=== PATIENT | male | born 1945 | race Caucasian/White ===

== ENCOUNTER → 2019-10-25 10:21 | Outpatient (CLI) | payer OTHER, SELFPAY ==
[2019-10-25 11:00] LABS: Appearance Urine UA SL CLOUDY; Bilirubin Urine UA NEGATIVE (NEGATIVE); Color Urine UA YELLOW; Glucose Urine UA TRACE g/dL (Negative); Ketones Urine UA NEGATIVE (NEGATIVE); Leukocyte Esterase Urine UA 1+ (NEGATIVE); Nitrite Urine UA NEGATIVE (Negative); Occult Blood Urine UA 3+ (Negative); Protein Urine UA 1+ (Negative); Specific Gravity Urine UA 1.025 (1.000-1.035); Urobilinogen Urine UA 0.2 E.U./dL (0.2)
[2019-10-25 11:15] LABS: Bacteria Urine Moderate (10-30); RBC Urine 10-30/HPF (0-5/HPF); Squamous Epithelial Cell Urine 0-1 /HPF (0-5/HPF); WBC Urine >100/HPF (0-5/HPF)
== END ==
PROVIDERS: Referring Provider Internal Medicine; Visit Provider Internal Medicine
DX: R32 Unspecified urinary incontinence (principal)
CPT/HCPCS: 81001; 87086

== ENCOUNTER 2020-05-13 19:11 | Emergency (ER) | payer OTHER, SELFPAY ==
[2020-05-13 19:26] VITALS: BP 147/90; PULSE 96; RESP 20; TEMP 36.6; O2SAT 96
[2020-05-13] MEDS: OXYCODONE/ACETAMINOPHEN 5/325 TABLET 1 TAB PO ×2 (20:04→23:50)
[2020-05-13 20:12] LABS: Prothrombin Time 11.7 SECONDS (10.1-12.7)
[2020-05-13 20:13] LABS: Basophils Absolute Auto 0 /uL (0-100); Basophils Percent Auto 0.1 % (0-2); Eosinophils Absolute Auto 0 /uL (0-450); Hematocrit 39.8 % (41-53); Hemoglobin 12.9 g/dL (13.5-17.5); Lymphocytes Absolute Auto 200 /uL (1100-4500); Lymphocytes Percent Auto 2.4 % (25-40); Mean Corpuscular HGB Conc 32.3 % (30-36); Mean Corpuscular Volume 95.9 fL (80-100); Monocytes Absolute Auto 100 /uL (0-900); Monocytes Percent Auto 1.5 % (3-14); Neutrophils Absolute Auto 9200 /uL (1500-7000); Platelet Count 120 X10^3/uL (150-400); Red Blood Cell Count 4.16 X10^6/uL (4.5-5.9); Red Cell Distribution Width 13.6 % (11.6-14.8); White Blood Cell Count 9.6 X10^3/uL (4.5-11.0)
[2020-05-13 20:15] LABS: PTT Partial Thromboplastin Tim 27 SECONDS (26.4-36.2)
[2020-05-13 20:17] LABS: Alanine Aminotransferase 17 IU/L (<50); Albumin 4.2 g/dL (3.5-5.0); Albumin Globulin Ratio 1.1 (1.0-2.8); Alkaline Phosphatase 72 U/L (38-126); Aspartate Aminotransferase 25 IU/L (17-59); BUN Creatinine Ratio 18.8 (6-22); Bilirubin Total 0.5 mg/dL (0.2-1.3); Blood Urea Nitrogen 36 mg/dL (9-20); Calcium 9.1 mg/dL (8.4-10.2); Carbon Dioxide 27 mmol/L (22-32); Chloride 105 mmol/L (98-107); Estimated Glomerular Filt Rate 34.6 mL/min (>60); Globulin 3.9 g/dL (1.7-4.1); Glucose 209 mg/dL (80-110); Lipase 44 U/L (23-300); Sodium 137 mmol/L (137-145); Total Protein 8.1 g/dL (6.3-8.2)
[2020-05-13 20:18] LABS: HEMOLYSIS 74 (0-50)
[2020-05-13 20:19] LABS: Potassium 4.8 mmol/L (3.4-5.1)
[2020-05-13 20:27] LABS: Add Manual Diff / Slide Review SLIDE REVIEW
[2020-05-13 20:28] LABS: Platelet Estimate Decreased on smear
[2020-05-13] MEDS: LIDOCAINE 2% (UROJET) 5 ML GEL TOP (20:32)
[2020-05-13] MEDS: ONDANSETRON 4 MG/2 ML INJ IV (20:37)
[2020-05-13] MEDS: HYDROMORPHONE 0.5 MG INJ IV ×2 (20:37→23:51)
[2020-05-13 21:08] VITALS: PULSE 74; O2SAT 95
--- NOTE | 2020-05-13 21:18 | PC.NURSE ---
CBI initiated, urine clearing. Now batista color with little sediment. Pt resting comfortably.
[2020-05-13 21:21] VITALS: BP 147/72
[2020-05-13 21:22] LABS: Appearance Urine UA CLOUDY; Bilirubin Urine UA NEGATIVE (NEGATIVE); Color Urine UA RED; Glucose Urine UA 1+ g/dL (Negative); Ketones Urine UA NEGATIVE (NEGATIVE); Leukocyte Esterase Urine UA TRACE (NEGATIVE); Nitrite Urine UA NEGATIVE (Negative); Occult Blood Urine UA 3+ (Negative); Protein Urine UA 2+ (Negative); Urobilinogen Urine UA 0.2 E.U./dL (0.2); pH Urine UA 5.5 (4.5-8.0)
[2020-05-13 21:29] LABS: Bacteria Urine Few (2-10); RBC Urine >100/HPF (0-5/HPF); Squamous Epithelial Cell Urine 0-1 /HPF (0-5/HPF); WBC Urine 1-5/HPF (0-5/HPF)
[2020-05-13 21:30] VITALS: BP 139/68; PULSE 69; O2SAT 96
[2020-05-13 21:30] LABS: Culture Indicated Urine Specimen Cultured
[2020-05-13 22:00] VITALS: BP 137/74; PULSE 68; O2SAT 96
[2020-05-13 22:30] VITALS: BP 164/82; PULSE 67; O2SAT 97
--- NOTE | 2020-05-13 23:00 | PC.NURSE ---
Urine brandee-tinged after first bag CBI. 2nd bag hung per verbal order. Pt resting comfortable, updated to POC.
[2020-05-13] MEDS: OXYCODONE/APAP 5/325 PREPACK 1 BOTTLE MISC (23:50)
--- NOTE | 2020-05-13 23:52 | ED.GENADULT ---
HPI - General Adult General Chief complaint: Abdominal Pain Stated complaint: LOTS OF PAIN IN THE KIDNEY HAD TUMOR SURGERY TODAY Time Seen by Provider: 05/13/20 19:47 Source: patient and family Mode of arrival: Ambulatory History of Present Illness HPI narrative: 74-year-old gentleman with a history of bladder polyps was seen at [facility] in [place] with polyp removal and left ureteral stent placement. Apparently the procedure went well he was discharged home however by the time he got back to the [place] he had voided couple small clots and then has stopped voiding completely. He is having increasing pelvic and left-sided flank pain. No fevers, chest pain, palpitations, syncope or orthopnea are reported Related Data Previous Rx's Medication Instructions Recorded oxycodone-acetaminophen 1 tab PO Q6H PRN 5 Days #20 tab 05/13/20 polyethylene glycol 3350 17 g PO DAILY #238 g 05/13/20 Allergies Allergy/AdvReac Type Severity Reaction Status Date / Time No Known Drug Allergies Allergy Verified 05/13/20 19:30 Review of Systems Review of Systems ROS Unobtainable: All systems reviewed & are unremarkable except as noted in HPI and below Patient History Medical History Bladder polyps Exam Narrative Exam Narrative: General: Alert appropriate in mild distress secondary to bladder pain Respiratory: Able to speak in full sentences, no obvious respiratory distress Abdomen: Tenderness over the infraumbilical area with some mild left flank pain no rebound or guarding. Skin: No obvious rashes, warm and dry Neurologic: Grossly intact no obvious asymmetries or abnormalities Psych, appropriate insight and affect, cooperative Initial Vital Signs Initial Vital Signs: Vital Signs Temperature 97.9 F 05/13/20 19:26 Pulse Rate 96 H 05/13/20 19:26 Respiratory Rate 20 05/13/20 19:26 Blood Pressure 147/90 H 05/13/20 19:26 Pulse Oximetry 96 05/13/20 19:26 Course Orders Ordered: Discontinued Medications Hydromorphone HCl (Hydromorphone 0.5 Mg Inj) 0.5 mg IV Q15MIN PRN PRN Reason: Pain, Last Admin: 05/13/20 20:37 Dose: 0.5 mg Documented by: [facility]CO Hydromorphone HCl (Hydromorphone 0.5 Mg Inj) 0.5 mg IV NOW ONE Stop: 05/13/20 23:47 Last Admin: 05/13/20 23:51 Dose: 0.5 mg Documented by: SOFIA Lidocaine HCl (Lidocaine 2% (Urojet) 5 Ml Gel) 5 ml TOP NOW ONE Stop: 05/13/20 20:20 Last Admin: 05/13/20 20:32 Dose: 5 ml Documented by: [facility]CO Ondansetron HCl (Ondansetron 4 Mg/2 Ml Inj) 4 mg IV NOW ONE Stop: 05/13/20 20:32 Last Admin: 05/13/20 20:37 Dose: 4 mg Documented by: [facility] Oxycodone/Acetaminophen (Oxycodone/Acetaminophen 5/325 Tablet) 1 tab PO NOW ONE Stop: 05/13/20 19:54 Last Admin: 05/13/20 20:04 Dose: 1 tab Documented by: TESSA Oxycodone/Acetaminophen (Oxycodone/Apap 5/325 Prepack) 1 bottle MISC SEEINSTR ONE Stop: 05/13/20 23:48 Last Admin: 05/13/20 23:50 Dose: 1 bottle Documented by: SOFIA Oxycodone/Acetaminophen (Oxycodone/Acetaminophen 5/325 Tablet) 1 tab PO NOW ONE Stop: 05/13/20 23:48 Last Admin: 05/13/20 23:50 Dose: 1 tab Documented by: SOFIA Vital Signs Vital signs: Vital Signs - 8 hr 05/13/20 22:30 05/14/20 00:29 Temperature 97.2 F L Pulse Rate 67 67 Respiratory Rate 18 Blood Pressure 164/82 H 140/73 Pulse Oximetry 97 97 Medical Decision Making Medical Records Medical records reviewed: Yes I reviewed the patient's medical records. Lab Data Lab results reviewed: Yes I reviewed the patient's lab results. Result diagrams: 05/13/20 19:52 05/13/20 19:52 Labs: Lab Results 05/13/20 05/13/20 05/13/20 Range/Units 19:52 19:52 19:52 WBC 9.6 (4.5-11.0) X10^3/uL RBC 4.16 L (4.5-5.9) X10^6/uL Hgb 12.9 L (13.5-17.5) g/dL Hct 39.8 L (41-53) % MCV 95.9 (80-100) fL MCH 31.0 (26-34) PG MCHC 32.3 (30-36) % RDW 13.6 (11.6-14.8) % Plt Count 120 L (150-400) X10^3/uL Neut % (Auto) 96.0 H (50-75) % Lymph % (Auto) 2.4 L (25-40) % [place] % (Auto) 1.5 L (3-14) % Eos % (Auto) 0.0 L (2-4) % Baso % (Auto) 0.1 (0-2) % Neut # (Auto) 9200 H (2531-5790) /uL Lymph # (Auto) 200 L (9603-0795) /uL [place] # (Auto) 100 (0-900) /uL Eos # (Auto) 0 (0-450) /uL Baso # (Auto) 0 (0-100) /uL Platelet Estimate Decreased on smear Plt Morphology Comment 2+ giant platelets RBC Morphology Not Reportable PT 11.7 (10.1-12.7) SECONDS INR 1.0 (0.9-1.3) APTT 27 (26.4-36.2) SECONDS Sodium 137 (137-145) mmol/L Potassium 4.8 (3.4-5.1) mmol/L Chloride 105 (98-107) mmol/L Carbon Dioxide 27 (22-32) mmol/L BUN 36 H (9-20) mg/dL Creatinine 1.92 H (0.66-1.25) mg/dL Estimated GFR 34.6 L (>60) mL/min BUN/Creatinine Ratio 18.8 (6-22) Glucose 209 H (80-110) mg/dL Calcium 9.1 (8.4-10.2) mg/dL Total Bilirubin 0.5 (0.2-1.3) mg/dL AST 25 (17-59) IU/L ALT 17 (<50) IU/L Alkaline Phosphatase 72 (38-126) U/L Total Protein 8.1 (6.3-8.2) g/dL Albumin 4.2 (3.5-5.0) g/dL Globulin 3.9 (1.7-4.1) g/dL Albumin/Globulin Ratio 1.1 (1.0-2.8) Lipase 44 (23-300) U/L Urine Color Urine Appearance Urine pH (4.5-8.0) Ur Specific [place] (1.000-1.035) Urine Protein (Negative) Urine Glucose (UA) (Negative) g/dL Urine Ketones (NEGATIVE) Urine Occult Blood (Negative) Urine Nitrate (Negative) Urine Bilirubin (NEGATIVE) Urine Urobilinogen (0.2) E.U./dL Ur Leukocyte Esterase (NEGATIVE) Urine RBC (0-5/HPF) Urine WBC (0-5/HPF) Ur Squamous Epith Cells (0-5/HPF) Urine Bacteria (None) Ur Culture Indicated? 05/13/20 Range/Units 21:12 WBC (4.5-11.0) X10^3/uL RBC (4.5-5.9) X10^6/uL Hgb (13.5-17.5) g/dL Hct (41-53) % MCV (80-100) fL MCH (26-34) PG MCHC (30-36) % RDW (11.6-14.8) % Plt Count (150-400) X10^3/uL Neut % (Auto) (50-75) % Lymph % (Auto) (25-40) % [place] % (Auto) (3-14) % Eos % (Auto) (2-4) % Baso % (Auto) (0-2) % Neut # (Auto) (7657-2004) /uL Lymph # (Auto) (4779-9486) /uL [place] # (Auto) (0-900) /uL Eos # (Auto) (0-450) /uL Baso # (Auto) (0-100) /uL Platelet Estimate Plt Morphology Comment RBC Morphology PT (10.1-12.7) SECONDS INR (0.9-1.3) APTT (26.4-36.2) SECONDS Sodium (137-145) mmol/L Potassium (3.4-5.1) mmol/L Chloride (98-107) mmol/L Carbon Dioxide (22-32) mmol/L BUN (9-20) mg/dL Creatinine (0.66-1.25) mg/dL Estimated GFR (>60) mL/min BUN/Creatinine Ratio (6-22) Glucose (80-110) mg/dL Calcium (8.4-10.2) mg/dL Total Bilirubin (0.2-1.3) mg/dL AST (17-59) IU/L ALT (<50) IU/L Alkaline Phosphatase (38-126) U/L Total Protein (6.3-8.2) g/dL Albumin (3.5-5.0) g/dL Globulin (1.7-4.1) g/dL Albumin/Globulin Ratio (1.0-2.8) Lipase (23-300) U/L Urine Color Red Urine Appearance Cloudy Urine pH 5.5 (4.5-8.0) Ur Specific [place] 1.010 (1.000-1.035) Urine Protein 2+ H (Negative) Urine Glucose (UA) 1+ H (Negative) g/dL Urine Ketones Negative (NEGATIVE) Urine Occult Blood 3+ H (Negative) Urine Nitrate Negative (Negative) Urine Bilirubin Negative (NEGATIVE) Urine Urobilinogen 0.2 (0.2) E.U./dL Ur Leukocyte Esterase Trace H (NEGATIVE) Urine RBC >100/hpf H (0-5/HPF) Urine WBC 1-5/hpf (0-5/HPF) Ur Squamous Epith Cells 0-1 /hpf (0-5/HPF) Urine Bacteria Few (2-10) H (None) Ur Culture Indicated? Specimen cultured MDM Narrative Medical decision making narrative: 74-year-old gentleman with acute urinary retention after bladder polyps were removed today presumably secondary to blood clots. Three way Azar was placed with approximately 500 cc of urine returned. With 4 L of irrigation urine was returning essentially clear. Pain was significantly improved with a single dose of IV Dilaudid up Percocet and relief of the acute bladder retention. Case was reviewed with Dr. Pozo, his urologist that performed the surgery this morning. Reviewed findings. He agreed with leaving the Azar catheter in as well as pain medication as needed. His office will contact the patient to arrange for follow-up and removal of Azar catheter in a timely manner. Patient is safe for home discharge Discharge Plan Departure Patient Disposition: Home Clinical Impression: Post-op pain, Acute urinary retention Instructions: DI for Urinary Retention in Men, DI for Ureteral Stent Placement Activity Restrictions/Additional Instructions: Thank you for coming in today I am so sorry that your having so much pain after your bladder surgery and stent placement today. You had enough blood clots that you are unable to void. When we initially placed a catheter you had almost 500 cc of urine along with significant blood clots. All of this was irrigated out and by the time you left the emergency department your urine was clear. I have given you some oxycodone-acetaminophen to help with pain control. This is a narcotic and will cause constipation. Any day that you use the oxycodone-acetaminophen please also take 17 g (1 packet or 1 cap full) of MiraLax with a large glass of water. Prescriptions: New oxycodone-acetaminophen 5-325 mg tablet 1 tab PO Q6H PRN (Reason: pain) 5 Days Qty: 20 RF: 0 polyethylene glycol 3350 17 gram/dose powder 17 g PO DAILY Qty: 238 RF: 0
[2020-05-14 00:29] VITALS: BP 140/73; PULSE 67; RESP 18; TEMP 36.2; O2SAT 97
== END 2020-05-14 00:31 | disposition home or self-care (01) ==
PROVIDERS: Emergency Provider Emergency Medicine
DX: G89.18 Other acute postprocedural pain (principal); R33.8 Other retention of urine; Z96.0 Presence of urogenital implants
CPT/HCPCS: 36415; 51701; 51705; 51798; 80053; 81001; 83690; 85025; 85610; 85730; 87086; 96374; 96375; 96376; 99281; 99284; J1170; J2405

== ENCOUNTER 2020-08-08 14:28 | Observation (INO) | payer OTHER, SELFPAY ==
[2020-08-08] VITALS (22 sets, daily range): BP systolic 126–193; BP diastolic 71–95; PULSE 86–116; RESP 15–29; TEMP 36.7–37.5; O2SAT 95–100; BMI 23.7
--- NOTE | 2020-08-08 14:30 | DI.RAD.S_ITS ---
PROCEDURE: XR CHEST 1V INDICATIONS: chest pain TECHNIQUE: One view of the chest was acquired. COMPARISON: None. FINDINGS: Surgical changes and devices: None. Lungs and pleura: Peripheral interstitial markings are seen in both lungs. No pleural effusions or pneumothorax. Mediastinum: Mediastinal contours appear normal. The cardiac silhouette is enlarged, which may be accentuated by portable AP technique. Bones and chest wall: No suspicious bony lesions. Overlying soft tissues appear unremarkable. IMPRESSION: Mild cardiomegaly. Peripheral reticulations in both lungs are most likely chronic, but mild interstitial edema is not excluded. Dictated by: Dat Clark M.D. on 08/08/2020 at 15:35 Approved by: Dat Clark M.D. on 08/08/2020 at 15:39
--- NOTE | 2020-08-08 15:48 | ED_ITS ---
HPI - Chest Pain <DO Conner Cunningham Last Filed: 08/09/20 06:58> General Chief Complaint: Chest Pain Stated Complaint: Chest pains Time Seen by Provider: 08/08/20 15:39 Source: patient Mode of arrival: Ambulatory Limitations: no limitations History of Present Illness HPI narrative: Patient is a 75-year-old male who has history of hyperlipidemia and recent bladder removal for bladder cancer a presenting today with chest pressure. He said he woke up around 7:00 a.m. head has noticed it constantly throughout the day. He says he just feels pressure in the center of his chest nonradiating no provocation or palliation. He has never had anything like this in the past, no known coronary artery disease. He had his bladder removed July 15 he stayed in the hospital for 1 week since then he has been extremely fatigued and sedentary although he does get up and walk some. He denies any shortness of breath no palpitations dizziness or lightheadedness. MD complaint: chest pain Onset (ago): hour(s) (12) Duration: constant Severity: mild Related Data Home Medications Medication Instructions Recorded Confirmed atorvastatin [Lipitor] 20 mg PO BEDTIME 08/08/20 08/08/20 Previous Rx's Medication Instructions Recorded polyethylene glycol 3350 17 g PO DAILY #238 g 05/13/20 Allergies Allergy/AdvReac Type Severity Reaction Status Date / Time No Known Drug Allergies Allergy Verified 08/08/20 14:32 Review of Systems <DO Conner Cunningham Last Filed: 08/09/20 06:58> Review of Systems Narrative: GENERAL: Denies chills, fatigue, malaise, fever, sweats, travel HEENT: Denies sinus pain, ear pain, sore throat, difficulty swallowing, neck pain RESPIRATORY: Denies dyspnea, cough, wheezing, hemoptysis, sputum. CARDIOVASCULAR: See HPI GASTROINTESTINAL: Denies nausea, vomiting, abdominal pain, diarrhea, constipation, melena. : Denies dysuria, frequency, incontinence, hematuria, urinary retention, flank pain. MUSCULOSKELETAL: Denies weakness, joint pain, or bony pain SKIN: No rash, no erythema, no pruritus NEUROLOGIC: Denies weakness, dizziness, headache, numbness, change in speech, confusion PSYCHIATRIC: No concerning psychosocial issues. 12 point review of systems is negative except for those stated above and HPI Patient History <Yumiko Grant DO - Last Filed: 08/09/20 06:58> Medical History (Updated 08/08/20 @ 21:13 by DELMY Bhatia) Bladder polyps Hyperlipidemia Impaired glucose tolerance Prostate cancer Surgical History (Updated 08/08/20 @ 21:13 by DELMY Bhatia) Bladder cancer H/O prostatectomy S/P ureteral stent placement Family History (Updated 08/08/20 @ 20:58 by DELMY Bhatia) Mother CVA (cerebral vascular accident) Father Lung cancer Tobacco user Sister Alive and well Social History household members: spouse Smoking Status: Former smoker alcohol intake: never Smoking Status: Unknown if ever smoked alcohol intake frequency: holidays/special occasions only Substance Use Type: does not use Exam <Yumiko Grant DO - Last Filed: 08/09/20 06:58> Initial Vital Signs Initial Vital Signs: Vital Signs Temperature 98.1 F 08/08/20 14:32 Pulse Rate 116 H 08/08/20 14:32 Respiratory Rate 15 08/08/20 14:32 Blood Pressure 126/84 08/08/20 14:32 Pulse Oximetry 99 08/08/20 14:32 GENERAL: Awake alert 75-year-old male and in no acute distress. HEENT: Head atraumatic,EOMI, pupils reactive, face symmetric, moist mucous membranes CARDIOVASCULAR: Regular rate and rhythm without murmurs, rubs or gallops. RESPIRATORY: Breath sounds equal bilaterally, no wheezes rales or rhonchi. ABDOMEN: Soft, nontender. Normoactive bowel sounds all 4 quadrants. No guarding or rebound. Urostomy noted EXTREMITIES: Normal range of motion, no clubbing or edema. Neurovascularly intact NEUROLOGICAL: Alert and oriented x4.Normal gait and speech. SKIN: Warm, dry, no laceration, no petechiae, no rashes or lesions. <Hilario Verma DO - Last Filed: 08/08/20 19:22> Initial Vital Signs Initial Vital Signs: Vital Signs Temperature 98.1 F 08/08/20 14:32 Pulse Rate 116 H 08/08/20 14:32 Respiratory Rate 15 08/08/20 14:32 Blood Pressure 126/84 08/08/20 14:32 Pulse Oximetry 99 08/08/20 14:32 Course <Yumiko Grant DO - Last Filed: 08/09/20 06:58> Orders Ordered: Acetaminophen (Acetaminophen 325 Mg Tablet) 650 mg PO Q6HR PRN PRN Reason: Fever/Mild Pain (1-3) Aspirin (Aspirin Ec 81 Mg Tablet) 81 mg PO DAILY [facility] Atorvastatin Calcium (Atorvastatin 20 Mg Tablet) 80 mg PO BEDTIME [facility] Last Admin: 08/08/20 21:24 Dose: 80 mg Documented by: Heparin Sodium (Porcine) (Heparin 5,000 Unit/Ml Vial) 5,000 unit SUBCUT BID [facility] Last Admin: 08/08/20 21:30 Dose: 5,000 unit Documented by: Morphine Sulfate (Morphine 2 Mg/Ml Inj) 2 mg IV Q5MIN PRN PRN Reason: Chest Pain Naloxone HCl (Naloxone 0.4 Mg/Ml Vial) 0.2 mg IV Q2MIN PRN PRN Reason: Opiate Reversal Nitroglycerin (Nitroglycerin 0.4 Mg Sl Tab) 0.4 mg SL [id number] PRN PRN Reason: Chest Pain Ondansetron HCl (Ondansetron 4 Mg/2 Ml Inj) 4 mg IV Q8HR PRN PRN Reason: Nausea And Vomiting Sodium Chloride (Sodium Chloride 0.9% Flush) 10 ml IV PRN PRN PRN Reason: Flush Sodium Chloride (Sodium Chloride 0.9% Flush) 10 ml IV BID [facility] Discontinued Medications Aspirin (Aspirin 81 Mg Chew Tab) 324 mg PO NOW ONE Stop: 08/08/20 15:59 Last Admin: 08/08/20 16:13 Dose: 324 mg Documented by: AUPDIKE Sodium Chloride (Normal Saline 0.9%) 1,000 mls @ 1,000 mls/hr IV BOLUS ONE Stop: 08/08/20 17:15 Last Admin: 08/08/20 16:34 Dose: 1,000 mls/hr Documented by: AUPDIKE Sodium Chloride (Normal Saline 0.9%) 1,000 mls @ 100 mls/hr IV CONT [facility] Stop: 08/09/20 05:29 Last Admin: 08/08/20 21:20 Dose: 100 mls/hr Documented by: Nitroglycerin (Nitroglycerin 0.4 Mg Sl Tab) 0.4 mg SL NOW ONE Stop: 08/08/20 15:59 Last Admin: 08/08/20 16:12 Dose: 0.4 mg Documented by: AUGUSTIN Nitroglycerin (Nitroglycerin 0.4 Mg Sl Tab) 0.4 mg SL NOW ONE Stop: 08/08/20 16:41 Last Admin: 08/08/20 16:43 Dose: 0.4 mg Documented by: AUGUSTIN Nitroglycerin (Nitroglycerin 0.4 Mg Sl Tab) 0.4 mg SL [id number] PRN PRN Reason: Chest Pain Last Admin: 08/09/20 05:46 Dose: 0.4 mg Documented by: Vital Signs Vital signs: Vital Signs - 8 hr 08/08/20 14:32 08/08/20 15:01 08/08/20 15:30 Temperature 98.1 F Pulse Rate 116 H 102 H 96 H Respiratory Rate 15 27 H Blood Pressure 126/84 158/95 H Pulse Oximetry 99 98 100 08/08/20 16:00 08/08/20 16:12 08/08/20 16:13 Temperature Pulse Rate 96 H 98 H 95 H Respiratory Rate 28 H 27 H Blood Pressure 193/93 H 184/93 H Pulse Oximetry 99 99 08/08/20 16:20 08/08/20 16:30 08/08/20 16:40 Temperature Pulse Rate 100 H 101 H 102 H Respiratory Rate 29 H 26 H 27 H Blood Pressure 144/80 H 147/85 H 152/90 H Pulse Oximetry 99 95 97 08/08/20 16:43 08/08/20 16:50 08/08/20 17:00 Temperature Pulse Rate 109 H 106 H Respiratory Rate Blood Pressure 152/90 H 132/75 132/71 Pulse Oximetry 96 95 08/08/20 17:10 Temperature Pulse Rate 97 H Respiratory Rate 20 Blood Pressure 138/82 Pulse Oximetry 97 <Hilario Verma DO - Last Filed: 08/08/20 19:22> Orders Ordered: Acetaminophen (Acetaminophen 325 Mg Tablet) 650 mg PO Q6HR PRN PRN Reason: Fever/Mild Pain (1-3) Aspirin (Aspirin Ec 81 Mg Tablet) 81 mg PO DAILY [facility] Atorvastatin Calcium (Atorvastatin 20 Mg Tablet) 80 mg PO BEDTIME [facility] Last Admin: 08/08/20 21:24 Dose: 80 mg Documented by: Heparin Sodium (Porcine) (Heparin 5,000 Unit/Ml Vial) 5,000 unit SUBCUT BID [facility] Last Admin: 08/08/20 21:30 Dose: 5,000 unit Documented by: Morphine Sulfate (Morphine 2 Mg/Ml Inj) 2 mg IV Q5MIN PRN PRN Reason: Chest Pain Naloxone HCl (Naloxone 0.4 Mg/Ml Vial) 0.2 mg IV Q2MIN PRN PRN Reason: Opiate Reversal Nitroglycerin (Nitroglycerin 0.4 Mg Sl Tab) 0.4 mg SL [id number] PRN PRN Reason: Chest Pain Ondansetron HCl (Ondansetron 4 Mg/2 Ml Inj) 4 mg IV Q8HR PRN PRN Reason: Nausea And Vomiting Sodium Chloride (Sodium Chloride 0.9% Flush) 10 ml IV PRN PRN PRN Reason: Flush Sodium Chloride (Sodium Chloride 0.9% Flush) 10 ml IV BID [facility] Discontinued Medications Aspirin (Aspirin 81 Mg Chew Tab) 324 mg PO NOW ONE Stop: 08/08/20 15:59 Last Admin: 08/08/20 16:13 Dose: 324 mg Documented by: AUGUSTIN Sodium Chloride (Normal Saline 0.9%) 1,000 mls @ 1,000 mls/hr IV BOLUS ONE Stop: 08/08/20 17:15 Last Admin: 08/08/20 16:34 Dose: 1,000 mls/hr Documented by: AUGUSTIN Sodium Chloride (Normal Saline 0.9%) 1,000 mls @ 100 mls/hr IV CONT [facility] Stop: 08/09/20 05:29 Last Admin: 08/08/20 21:20 Dose: 100 mls/hr Documented by: Nitroglycerin (Nitroglycerin 0.4 Mg Sl Tab) 0.4 mg SL NOW ONE Stop: 08/08/20 15:59 Last Admin: 08/08/20 16:12 Dose: 0.4 mg Documented by: AUGUSTIN Nitroglycerin (Nitroglycerin 0.4 Mg Sl Tab) 0.4 mg SL NOW ONE Stop: 08/08/20 16:41 Last Admin: 08/08/20 16:43 Dose: 0.4 mg Documented by: AUGUSTIN Nitroglycerin (Nitroglycerin 0.4 Mg Sl Tab) 0.4 mg SL [id number] PRN PRN Reason: Chest Pain Last Admin: 08/09/20 05:46 Dose: 0.4 mg Documented by: Vital Signs Vital signs: Vital Signs - 8 hr 08/08/20 14:32 08/08/20 15:01 08/08/20 15:30 Temperature 98.1 F Pulse Rate 116 H 102 H 96 H Respiratory Rate 15 27 H Blood Pressure 126/84 158/95 H Pulse Oximetry 99 98 100 08/08/20 16:00 08/08/20 16:12 08/08/20 16:13 Temperature Pulse Rate 96 H 98 H 95 H Respiratory Rate 28 H 27 H Blood Pressure 193/93 H 184/93 H Pulse Oximetry 99 99 08/08/20 16:20 08/08/20 16:30 08/08/20 16:40 Temperature Pulse Rate 100 H 101 H 102 H Respiratory Rate 29 H 26 H 27 H Blood Pressure 144/80 H 147/85 H 152/90 H Pulse Oximetry 99 95 97 08/08/20 16:43 08/08/20 16:50 08/08/20 17:00 Temperature Pulse Rate 109 H 106 H Respiratory Rate Blood Pressure 152/90 H 132/75 132/71 Pulse Oximetry 96 95 08/08/20 17:10 Temperature Pulse Rate 97 H Respiratory Rate 20 Blood Pressure 138/82 Pulse Oximetry 97 MDM - Chest Pain <Yumiko Grant, - Last Filed: 08/09/20 06:58> Lab Data Attestation: I reviewed the patient's lab results. Result diagrams: 08/09/20 03:28 08/09/20 03:28 Labs: Lab Results 08/08/20 08/08/20 08/08/20 Range/Units 15:42 15:42 15:42 WBC 15.4 H (4.5-11.0) X10^3/uL RBC 3.71 L (4.5-5.9) X10^6/uL Hgb 10.9 L (13.5-17.5) g/dL Hct 33.8 L (41-53) % MCV 91.3 (80-100) fL MCH 29.3 (26-34) PG MCHC 32.1 (30-36) % RDW 14.1 (11.6-14.8) % Plt Count 245 (150-400) X10^3/uL Neut % (Auto) 84.7 H (50-75) % Lymph % (Auto) 6.1 L (25-40) % [place] % (Auto) 7.4 (3-14) % Eos % (Auto) 1.3 L (2-4) % Baso % (Auto) 0.5 (0-2) % Neut # (Auto) 65249 H (4090-0283) /uL Lymph # (Auto) 900 L (5905-4012) /uL [place] # (Auto) 1100 H (0-900) /uL Eos # (Auto) 200 (0-450) /uL Baso # (Auto) 100 (0-100) /uL PT 12.2 (10.1-12.7) SECONDS INR 1.1 (0.9-1.3) APTT 30 (26.4-36.2) SECONDS D-Dimer (<230) ng/mL Sodium 140 (137-145) mmol/L Potassium 4.8 (3.4-5.1) mmol/L Chloride 105 (98-107) mmol/L Carbon Dioxide 24 (22-32) mmol/L BUN 46 H (9-20) mg/dL Creatinine 2.33 H (0.66-1.25) mg/dL Estimated GFR 27.6 L (>60) mL/min BUN/Creatinine Ratio 19.7 (6-22) Glucose 136 H (80-110) mg/dL Hemoglobin A1c (4.0-6.0) % Calcium 9.6 (8.4-10.2) mg/dL Total Bilirubin 0.4 (0.2-1.3) mg/dL AST 30 (17-59) IU/L ALT 33 (<50) IU/L Alkaline Phosphatase 102 (38-126) U/L Total Creatine Kinase < 20 L (55-170) U/L CK-MB (CK-2) TNP CK-MB (CK-2) Rel Index TNP Troponin I < 0.012 (0.01-0.034) ng/mL NT-Pro-B Natriuret Pep (<125) pg/mL Total Protein 8.5 H (6.3-8.2) g/dL Albumin 3.9 (3.5-5.0) g/dL Globulin 4.6 H (1.7-4.1) g/dL Albumin/Globulin Ratio 0.8 L (1.0-2.8) Lipase 101 (23-300) U/L Procalcitonin (<0.5) ng/mL SARS-CoV-2 (PCR) (Negative) 08/08/20 08/08/20 08/08/20 Range/Units 15:42 15:42 15:42 WBC (4.5-11.0) X10^3/uL RBC (4.5-5.9) X10^6/uL Hgb (13.5-17.5) g/dL Hct (41-53) % MCV (80-100) fL MCH (26-34) PG MCHC (30-36) % RDW (11.6-14.8) % Plt Count (150-400) X10^3/uL Neut % (Auto) (50-75) % Lymph % (Auto) (25-40) % [place] % (Auto) (3-14) % Eos % (Auto) (2-4) % Baso % (Auto) (0-2) % Neut # (Auto) (8033-7654) /uL Lymph # (Auto) (5665-8349) /uL [place] # (Auto) (0-900) /uL Eos # (Auto) (0-450) /uL Baso # (Auto) (0-100) /uL PT (10.1-12.7) SECONDS INR (0.9-1.3) APTT (26.4-36.2) SECONDS D-Dimer 1264 H (<230) ng/mL Sodium (137-145) mmol/L Potassium (3.4-5.1) mmol/L Chloride (98-107) mmol/L Carbon Dioxide (22-32) mmol/L BUN (9-20) mg/dL Creatinine (0.66-1.25) mg/dL Estimated GFR (>60) mL/min BUN/Creatinine Ratio (6-22) Glucose (80-110) mg/dL Hemoglobin A1c 5.4 (4.0-6.0) % Calcium (8.4-10.2) mg/dL Total Bilirubin (0.2-1.3) mg/dL AST (17-59) IU/L ALT (<50) IU/L Alkaline Phosphatase (38-126) U/L Total Creatine Kinase (55-170) U/L CK-MB (CK-2) CK-MB (CK-2) Rel Index Troponin I (0.01-0.034) ng/mL NT-Pro-B Natriuret Pep 633 H (<125) pg/mL Total Protein (6.3-8.2) g/dL Albumin (3.5-5.0) g/dL Globulin (1.7-4.1) g/dL Albumin/Globulin Ratio (1.0-2.8) Lipase (23-300) U/L Procalcitonin (<0.5) ng/mL SARS-CoV-2 (PCR) (Negative) 08/08/20 08/08/20 Range/Units 15:42 17:00 WBC (4.5-11.0) X10^3/uL RBC (4.5-5.9) X10^6/uL Hgb (13.5-17.5) g/dL Hct (41-53) % MCV (80-100) fL MCH (26-34) PG MCHC (30-36) % RDW (11.6-14.8) % Plt Count (150-400) X10^3/uL Neut % (Auto) (50-75) % Lymph % (Auto) (25-40) % [place] % (Auto) (3-14) % Eos % (Auto) (2-4) % Baso % (Auto) (0-2) % Neut # (Auto) (3617-9091) /uL Lymph # (Auto) (0449-7542) /uL [place] # (Auto) (0-900) /uL Eos # (Auto) (0-450) /uL Baso # (Auto) (0-100) /uL PT (10.1-12.7) SECONDS INR (0.9-1.3) APTT (26.4-36.2) SECONDS D-Dimer (<230) ng/mL Sodium (137-145) mmol/L Potassium (3.4-5.1) mmol/L Chloride (98-107) mmol/L Carbon Dioxide (22-32) mmol/L BUN (9-20) mg/dL Creatinine (0.66-1.25) mg/dL Estimated GFR (>60) mL/min BUN/Creatinine Ratio (6-22) Glucose (80-110) mg/dL Hemoglobin A1c (4.0-6.0) % Calcium (8.4-10.2) mg/dL Total Bilirubin (0.2-1.3) mg/dL AST (17-59) IU/L ALT (<50) IU/L Alkaline Phosphatase (38-126) U/L Total Creatine Kinase (55-170) U/L CK-MB (CK-2) CK-MB (CK-2) Rel Index Troponin I (0.01-0.034) ng/mL NT-Pro-B Natriuret Pep (<125) pg/mL Total Protein (6.3-8.2) g/dL Albumin (3.5-5.0) g/dL Globulin (1.7-4.1) g/dL Albumin/Globulin Ratio (1.0-2.8) Lipase (23-300) U/L Procalcitonin 0.13 (<0.5) ng/mL SARS-CoV-2 (PCR) Negative (Negative) Imaging Data Chest x-ray: Radiologist's Impression: PROCEDURE: XR CHEST 1V INDICATIONS: chest pain TECHNIQUE: One view of the chest was acquired. COMPARISON: None. FINDINGS: Surgical changes and devices: None. Lungs and pleura: Peripheral interstitial markings are seen in both lungs. No pleural effusions or pneumothorax. Mediastinum: Mediastinal contours appear normal. The cardiac silhouette is enlarged, which may be accentuated by portable AP technique. Bones and chest wall: No suspicious bony lesions. Overlying soft tissues appear unremarkable. IMPRESSION: Mild cardiomegaly. Peripheral reticulations in both lungs are most likely chronic, but mild interstitial edema is not excluded. Dictated by: Dat Clark M.D. on 08/08/2020 at 15:35 ECG Data Attestation: I personally reviewed and interpreted this ECG as follows: Prior ECG tracings: not available for review Interpretation: Normal sinus rhythm rate [address] changes peaked T-waves noted in V2 to be 6 EKG 2. Sinus rhythm rate [address] changes T-waves in V3 through V5 appear improved from previous EKG but no ST changes MDM Narrative Medical decision making narrative: Patient's pain relieved with 2 nitroglycerin and is now pain free. Concern for possible PE , however GFR is less than 30. Will check D-dimer, D-dimer is 1200. I spoke with Dr. augustine in agreeance is patient does need a CT. Patient signed out to Dr. Verma Check on CT <Hilario Verma, DO - Last Filed: 08/08/20 19:22> Lab Data Labs: Lab Results 08/08/20 08/08/20 08/08/20 Range/Units 15:42 15:42 15:42 WBC 15.4 H (4.5-11.0) X10^3/uL RBC 3.71 L (4.5-5.9) X10^6/uL Hgb 10.9 L (13.5-17.5) g/dL Hct 33.8 L (41-53) % MCV 91.3 (80-100) fL MCH 29.3 (26-34) PG MCHC 32.1 (30-36) % RDW 14.1 (11.6-14.8) % Plt Count 245 (150-400) X10^3/uL Neut % (Auto) 84.7 H (50-75) % Lymph % (Auto) 6.1 L (25-40) % [place] % (Auto) 7.4 (3-14) % Eos % (Auto) 1.3 L (2-4) % Baso % (Auto) 0.5 (0-2) % Neut # (Auto) 33688 H (3879-9346) /uL Lymph # (Auto) 900 L (3602-1035) /uL [place] # (Auto) 1100 H (0-900) /uL Eos # (Auto) 200 (0-450) /uL Baso # (Auto) 100 (0-100) /uL PT 12.2 (10.1-12.7) SECONDS INR 1.1 (0.9-1.3) APTT 30 (26.4-36.2) SECONDS D-Dimer (<230) ng/mL Sodium 140 (137-145) mmol/L Potassium 4.8 (3.4-5.1) mmol/L Chloride 105 (98-107) mmol/L Carbon Dioxide 24 (22-32) mmol/L BUN 46 H (9-20) mg/dL Creatinine 2.33 H (0.66-1.25) mg/dL Estimated GFR 27.6 L (>60) mL/min BUN/Creatinine Ratio 19.7 (6-22) Glucose 136 H (80-110) mg/dL Hemoglobin A1c (4.0-6.0) % Calcium 9.6 (8.4-10.2) mg/dL Total Bilirubin 0.4 (0.2-1.3) mg/dL AST 30 (17-59) IU/L ALT 33 (<50) IU/L Alkaline Phosphatase 102 (38-126) U/L Total Creatine Kinase < 20 L (55-170) U/L CK-MB (CK-2) TNP CK-MB (CK-2) Rel Index TNP Troponin I < 0.012 (0.01-0.034) ng/mL NT-Pro-B Natriuret Pep (<125) pg/mL Total Protein 8.5 H (6.3-8.2) g/dL Albumin 3.9 (3.5-5.0) g/dL Globulin 4.6 H (1.7-4.1) g/dL Albumin/Globulin Ratio 0.8 L (1.0-2.8) Lipase 101 (23-300) U/L Procalcitonin (<0.5) ng/mL SARS-CoV-2 (PCR) (Negative) 08/08/20 08/08/20 08/08/20 Range/Units 15:42 15:42 15:42 WBC (4.5-11.0) X10^3/uL RBC (4.5-5.9) X10^6/uL Hgb (13.5-17.5) g/dL Hct (41-53) % MCV (80-100) fL MCH (26-34) PG MCHC (30-36) % RDW (11.6-14.8) % Plt Count (150-400) X10^3/uL Neut % (Auto) (50-75) % Lymph % (Auto) (25-40) % [place] % (Auto) (3-14) % Eos % (Auto) (2-4) % Baso % (Auto) (0-2) % Neut # (Auto) (7121-2857) /uL Lymph # (Auto) (0997-3788) /uL [place] # (Auto) (0-900) /uL Eos # (Auto) (0-450) /uL Baso # (Auto) (0-100) /uL PT (10.1-12.7) SECONDS INR (0.9-1.3) APTT (26.4-36.2) SECONDS D-Dimer 1264 H (<230) ng/mL Sodium (137-145) mmol/L Potassium (3.4-5.1) mmol/L Chloride (98-107) mmol/L Carbon Dioxide (22-32) mmol/L BUN (9-20) mg/dL Creatinine (0.66-1.25) mg/dL Estimated GFR (>60) mL/min BUN/Creatinine Ratio (6-22) Glucose (80-110) mg/dL Hemoglobin A1c 5.4 (4.0-6.0) % Calcium (8.4-10.2) mg/dL Total Bilirubin (0.2-1.3) mg/dL AST (17-59) IU/L ALT (<50) IU/L Alkaline Phosphatase (38-126) U/L Total Creatine Kinase (55-170) U/L CK-MB (CK-2) CK-MB (CK-2) Rel Index Troponin I (0.01-0.034) ng/mL NT-Pro-B Natriuret Pep 633 H (<125) pg/mL Total Protein (6.3-8.2) g/dL Albumin (3.5-5.0) g/dL Globulin (1.7-4.1) g/dL Albumin/Globulin Ratio (1.0-2.8) Lipase (23-300) U/L Procalcitonin (<0.5) ng/mL SARS-CoV-2 (PCR) (Negative) 08/08/20 08/08/20 Range/Units 15:42 17:00 WBC (4.5-11.0) X10^3/uL RBC (4.5-5.9) X10^6/uL Hgb (13.5-17.5) g/dL Hct (41-53) % MCV (80-100) fL MCH (26-34) PG MCHC (30-36) % RDW (11.6-14.8) % Plt Count (150-400) X10^3/uL Neut % (Auto) (50-75) % Lymph % (Auto) (25-40) % [place] % (Auto) (3-14) % Eos % (Auto) (2-4) % Baso % (Auto) (0-2) % Neut # (Auto) (2709-9413) /uL Lymph # (Auto) (0261-1199) /uL [place] # (Auto) (0-900) /uL Eos # (Auto) (0-450) /uL Baso # (Auto) (0-100) /uL PT (10.1-12.7) SECONDS INR (0.9-1.3) APTT (26.4-36.2) SECONDS D-Dimer (<230) ng/mL Sodium (137-145) mmol/L Potassium (3.4-5.1) mmol/L Chloride (98-107) mmol/L Carbon Dioxide (22-32) mmol/L BUN (9-20) mg/dL Creatinine (0.66-1.25) mg/dL Estimated GFR (>60) mL/min BUN/Creatinine Ratio (6-22) Glucose (80-110) mg/dL Hemoglobin A1c (4.0-6.0) % Calcium (8.4-10.2) mg/dL Total Bilirubin (0.2-1.3) mg/dL AST (17-59) IU/L ALT (<50) IU/L Alkaline Phosphatase (38-126) U/L Total Creatine Kinase (55-170) U/L CK-MB (CK-2) CK-MB (CK-2) Rel Index Troponin I (0.01-0.034) ng/mL NT-Pro-B Natriuret Pep (<125) pg/mL Total Protein (6.3-8.2) g/dL Albumin (3.5-5.0) g/dL Globulin (1.7-4.1) g/dL Albumin/Globulin Ratio (1.0-2.8) Lipase (23-300) U/L Procalcitonin 0.13 (<0.5) ng/mL SARS-CoV-2 (PCR) Negative (Negative) Imaging Data CT scan - chest: Radiologist's Impression: No evidence of pulmonary embolism or aortic dissection. Tortuous and a retic thoracic aorta. Upper abdominal a order measures up to 3.9 cm in diameter and may reflect a partially imaged abdominal aortic aneurysm consider follow-up CT abdomen and pelvis Reticular chronic interstitial changes in the periphery of both lungs US - DVT: Radiologist's Impression: No evidence of bilateral lower extremity DVT MDM Narrative Medical decision making narrative: Dr Verma: Received turned over. Reviewed patient's history and physical. Patient CTA shows no signs of pulmonary embolism. Bilateral lower extremity DVT ultrasounds unremarkable. Dr. Grant already discussed the case with Dr. Augustine with Internal Medicine with anticipation that if there were no pulmonary emboli that he would be admitted to the hospital. I did inform Dr. augustine of the findings. I did inform the patient of the findings as well. He is currently asymptomatic. We will admit for further risk stratification. Discharge Plan Departure Patient Disposition: Admitted as Observation Clinical Impression: Chest pain Admit Date/Time: 08/08/20 18:58 Admit Provider: Yoli Augustine
[2020-08-08 15:49] LABS: Add Manual Diff / Slide Review NO; Basophils Absolute Auto 100 /uL (0-100); Basophils Percent Auto 0.5 % (0-2); Eosinophils Absolute Auto 200 /uL (0-450); Eosinophils Percent Auto 1.3 % (2-4); Hematocrit 33.8 % (41-53); Hemoglobin 10.9 g/dL (13.5-17.5); Lymphocytes Absolute Auto 900 /uL (1100-4500); Lymphocytes Percent Auto 6.1 % (25-40); Mean Corpuscular HGB Conc 32.1 % (30-36); Mean Corpuscular Hemoglobin 29.3 PG (26-34); Mean Corpuscular Volume 91.3 fL (80-100); Monocytes Absolute Auto 1100 /uL (0-900); Monocytes Percent Auto 7.4 % (3-14); Neutrophils Absolute Auto 13100 /uL (1500-7000); Neutrophils Percent Auto 84.7 % (50-75); Platelet Count 245 X10^3/uL (150-400); Red Blood Cell Count 3.71 X10^6/uL (4.5-5.9); Red Cell Distribution Width 14.1 % (11.6-14.8); White Blood Cell Count 15.4 X10^3/uL (4.5-11.0)
--- NOTE | 2020-08-08 15:59 | DI.CT.S_ITS ---
PROCEDURE: CT ANGIO CHEST PE PROTOCOL INDICATIONS: chest pain, recent surgery TECHNIQUE: After the administration of intravenous contrast, 2 mm thick sections acquired from the pulmonary apices to the posterior costophrenic angles. 3-dimensional maximum intensity projection (MIP) coronal and sagittal reformats were then acquired through the thorax. For radiation dose reduction, the following was used: automated exposure control, adjustment of mA and/or kV according to patient size. COMPARISON: None. FINDINGS: Image quality: Excellent. Vasculature: Pulmonary arteries are normal in size, and demonstrate no intraluminal filling defects to suggest central pulmonary embolism. Aorta is tortuous and atherosclerotic without thoracic aneurysm. In the upper abdomen, the aortic diameter measures 3.8 cm in diameter at the level of the SMA. Lungs and pleura: No focal infiltrate. There is reticular peripheral interstitial thick thickening particular at the lung bases. No focal nodule. Mediastinum: Heart size is normal, without pericardial effusion. No mediastinal or hilar adenopathy. Thoracic aorta is normal in caliber and enhancement. Esophagus is normal in caliber, without hiatal hernia. Bones and chest wall: No suspicious bony lesions. Ribs and thoracic spine appear intact throughout. Thyroid gland unremarkable. No axillary or supraclavicular adenopathy. Abdomen: Visualized upper abdominal solid organs appear normal in the early arterial phase of enhancement. IMPRESSION: 1. No evidence of pulmonary embolism or aortic dissection. 2. Tortuous and ectatic thoracic aorta. The upper abdominal aorta measures up to 3.9 cm in diameter, and may reflect a partially imaged abdominal aortic aneurysm. Consider follow-up CT abdomen and pelvis 3. Reticular chronic interstitial changes in periphery of both lungs Dictated by: Jesus Da Silva M.D. on 08/08/2020 at 16:54 Approved by: Jesus Da Silva M.D. on 08/08/2020 at 17:08
[2020-08-08 16:00] LABS: INR 1.1 (0.9-1.3); Prothrombin Time 12.2 SECONDS (10.1-12.7)
[2020-08-08 16:03] LABS: PTT Partial Thromboplastin Tim 30 SECONDS (26.4-36.2)
[2020-08-08 16:07] LABS: Alanine Aminotransferase 33 IU/L (<50); Albumin 3.9 g/dL (3.5-5.0); Albumin Globulin Ratio 0.8 (1.0-2.8); Alkaline Phosphatase 102 U/L (38-126); Aspartate Aminotransferase 30 IU/L (17-59); BUN Creatinine Ratio 19.7 (6-22); Bilirubin Total 0.4 mg/dL (0.2-1.3); Blood Urea Nitrogen 46 mg/dL (9-20); Calcium 9.6 mg/dL (8.4-10.2); Carbon Dioxide 24 mmol/L (22-32); Chloride 105 mmol/L (98-107); Creatine Kinase < 20 U/L (55-170); Estimated Glomerular Filt Rate 27.6 mL/min (>60); Globulin 4.6 g/dL (1.7-4.1); Glucose 136 mg/dL (80-110); HEMOLYSIS < 15 (0-50); Lipase 101 U/L (23-300); Potassium 4.8 mmol/L (3.4-5.1); Sodium 140 mmol/L (137-145); Total Protein 8.5 g/dL (6.3-8.2)
[2020-08-08] MEDS: NITROGLYCERIN 0.4 MG SL TAB SL ×3 (16:12→21:15)
--- NOTE | 2020-08-08 16:12 | DI.US.S_ITS ---
PROCEDURE: US PERIPH VENOUS LOW EXTREM BI INDICATIONS: RULE OUT DEEP VEIN THROMBOSIS TECHNIQUE: Real-time imaging, as well as color and pulse Doppler interrogation, were performed of the deep veins of both legs from the inguinal ligament to the popliteal fossa. COMPARISON: None. FINDINGS: Right: The common femoral, femoral and popliteal veins are normally compressible, and free of intraluminal thrombus. Color and pulse Doppler demonstrate normal phasic intravascular flow. There is normal augmentation response to distal compression maneuver. Left: The common femoral, femoral and popliteal veins are normally compressible, and free of intraluminal thrombus. Color and pulse Doppler demonstrate normal phasic intravascular flow. There is normal augmentation response to distal compression maneuver. IMPRESSION: No evidence of bilateral lower extremity DVT. Dictated by: Naomi Cisneros M.D. on 08/08/2020 at 18:16 Approved by: Naomi Cisneros M.D. on 08/08/2020 at 18:16
[2020-08-08] MEDS: ASPIRIN 81 MG CHEW TAB 324 MG PO (16:13)
[2020-08-08 16:18] LABS: Troponin I < 0.012 ng/mL (0.01-0.034)
[2020-08-08 16:30] LABS: D Dimer 1264 ng/mL (<230)
[2020-08-08] MEDS: SODIUM CHLORIDE 0.9% 1,000 ML 1000 ML IV (16:34)
[2020-08-08 18:05] LABS: COVID19 - ADMIT (NP swab/PCR) Negative (Negative)
[2020-08-08 19:58] LABS: Hemoglobin A1C% w Est Avg Glu 5.4 % (4.0-6.0)
[2020-08-08 20:04] LABS: NT-proBNP (BNP-Adult 18+) 633 pg/mL (<125)
--- NOTE | 2020-08-08 20:40 | PM.HP.1 ---
History of Present Illness History of Present Illness Date Patient Seen: 08/08/20 Time Patient Seen: 19:55 Chief complaint: Chest pressure relieved w/nitroglycerine Narrative: Joshua Dunham is a very pleasant 75 y.o. male with hyperlipidemia and a recent diagnosis and surgery for bladder cancer. He woke up this morning feeling like he had pressure on his chest. Stated the sensation did not migrate to his arm or jaw. He presented to the ED and was administered nitro and stated the pain went away immediately. He denies fever, sweats or chills, vision changes, has chronic hearing deficits and wears hearing aids, denies shortness of breath, nausea, abdominal pain, diarrhea or constipation. He does state he has had a moderate appetite and has lost 25 lbs since the beginning of the year. In April, he was treated for a bladder infection, it then was thought to recur and he had hematuria. 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 It was surgically removed on July 14 and he now has a urostomy bag. States he has lost 10 lbs since the surgery, but his appetite is returning. Stated during his hospital stay, his blood pressure was variable sometimes spiking up to the high 190s and stated was adminstered one time doses of medications when it was high. He was hospitalized at [facility] from July 15- of this year. Patient states he completed the second of the Moderna Sars Cov 2 vaccine one month ago. CTA of the chest was negative for a PE but concerning for The upper abdominal aorta measures up to 3.9 cm in diameter, and may reflect a partially imaged abdominal aortic aneurysm. Consider follow-up CT abdomen and pelvis., vascular ultrasound was negative for DVT. Patient is afebrile, blood pressure 146/81, heart rate 92, respiratory rate 18, oxygen saturation 97% on room air, he weighs 81.6 kg BMI of 23.7. WBC is 15.4 with a left shift, RBC 3.71, hemoglobin 10.9, hematocrit 33.8, platelet count 245, D-dimer was elevated at 1264, sodium 140, potassium 4.8, chloride 105, bicarb 24, BUN 46, creatinine 2.33, GFR is 27.6, glucose 136, a A1c 5.4, liver enzymes within normal limits, 1st troponin was 0.012, BNP elevated at 633, COVID-19 PCR is negative. Patient History Medical History (Updated 08/08/20 @ 21:13 by DELMY Bhatia) Bladder polyps Hyperlipidemia Impaired glucose tolerance Prostate cancer Surgical History (Updated 08/08/20 @ 21:13 by DELMY Bhatia) Bladder cancer H/O prostatectomy S/P ureteral stent placement Family & Social History Family History (Updated 08/08/20 @ 20:58 by DELMY Bhatia) Mother CVA (cerebral vascular accident) Father Lung cancer Tobacco user Sister Alive and well Safety & Behavioral: Feels Safe in Current Yes Environment Been Physically Hurt or No Threatened By a Person Tobacco & Substance use: Smoking Status Quit age 32 alcohol intake frequency holiday/special occasion Substance Use Type does not use Meds Home Medications and Allergies Home Medications Medication Instructions Recorded Confirmed Type polyethylene glycol 3350 17 g PO DAILY #238 g 05/13/20 Rx atorvastatin [Lipitor] 20 mg PO BEDTIME 08/08/20 08/08/20 History Allergies Allergy/AdvReac Type Severity Reaction Status Date / Time No Known Drug Allergies Allergy Verified 08/08/20 14:32 Review of Systems Review of Systems ROS: Yes All systems reviewed with the patient and are negative except as otherwise documented Exam Vital Signs (past 8 hours): - 08/08/20 14:32 08/08/20 15:01 08/08/20 15:30 Temperature 98.1 F Pulse Rate 116 H 102 H 96 H Respiratory Rate 15 27 H Blood Pressure 126/84 158/95 H Pulse Oximetry 99 98 100 08/08/20 16:00 08/08/20 16:12 08/08/20 16:13 Temperature Pulse Rate 96 H 98 H 95 H Respiratory Rate 28 H 27 H Blood Pressure 193/93 H 184/93 H Pulse Oximetry 99 99 08/08/20 16:20 08/08/20 16:30 08/08/20 16:40 Temperature Pulse Rate 100 H 101 H 102 H Respiratory Rate 29 H 26 H 27 H Blood Pressure 144/80 H 147/85 H 152/90 H Pulse Oximetry 99 95 97 08/08/20 16:43 08/08/20 16:50 08/08/20 17:00 Temperature Pulse Rate 109 H 106 H Respiratory Rate Blood Pressure 152/90 H 132/75 132/71 Pulse Oximetry 96 95 08/08/20 17:10 08/08/20 18:52 08/08/20 19:00 Temperature Pulse Rate 97 H 101 H 90 Respiratory Rate 20 Blood Pressure 138/82 147/86 H 150/86 H Pulse Oximetry 97 98 98 08/08/20 19:10 08/08/20 19:20 08/08/20 20:33 Temperature 98.9 F Pulse Rate 88 88 92 H Respiratory Rate 18 Blood Pressure 137/84 136/84 146/81 H Pulse Oximetry 99 100 97 Oxygen Delivery Method Room Air Narrative Exam Narrative: Gen: Alert, oriented, thin but well nourished 75 y.o. male, NAD HEENT: normocephalic, atraumatic, conjunctiva clear, sclera non-icteric, oral mucosa pink and moist Neck: supple, full ROM, no JVD, trachea is midline Resp: Lungs CTA, non-labored breathing CV: RRR, no murmur or rubs Abd: soft, non-tender, normoactive BTs : Urostomy in place Skin: Pale, healing vertical surgical sutures on abdomen extending from below umbilicus to suprapubic area, does not appear infected, no lesions or rashes, dry and intact Neuro: Alert and oriented X 4 w/no focal deficits. Speech clear and coherent. Extremities: moves all 4 extremities, is ambulatory, negative Johana?s sign Psyche: normal mood and affect. Objective Labs Result Diagrams: 08/08/20 15:42 08/08/20 15:42 Labs: Laboratory Results - last 24 hr 08/08/20 08/08/20 08/08/20 15:42 15:42 15:42 WBC 15.4 H RBC 3.71 L Hgb 10.9 L Hct 33.8 L MCV 91.3 MCH 29.3 MCHC 32.1 RDW 14.1 Plt Count 245 Neut % (Auto) 84.7 H Lymph % (Auto) 6.1 L [place] % (Auto) 7.4 Eos % (Auto) 1.3 L Baso % (Auto) 0.5 Neut # (Auto) 07388 H Lymph # (Auto) 900 L [place] # (Auto) 1100 H Eos # (Auto) 200 Baso # (Auto) 100 PT 12.2 INR 1.1 APTT 30 D-Dimer Sodium 140 Potassium 4.8 Chloride 105 Carbon Dioxide 24 BUN 46 H Creatinine 2.33 H Estimated GFR 27.6 L BUN/Creatinine Ratio 19.7 Glucose 136 H Hemoglobin A1c Calcium 9.6 Total Bilirubin 0.4 AST 30 ALT 33 Alkaline Phosphatase 102 Total Creatine Kinase < 20 L CK-MB (CK-2) TNP CK-MB (CK-2) Rel Index TNP Troponin I < 0.012 NT-Pro-B Natriuret Pep Total Protein 8.5 H Albumin 3.9 Globulin 4.6 H Albumin/Globulin Ratio 0.8 L Lipase 101 SARS-CoV-2 (PCR) 08/08/20 08/08/20 08/08/20 15:42 15:42 15:42 WBC RBC Hgb Hct MCV MCH MCHC RDW Plt Count Neut % (Auto) Lymph % (Auto) [place] % (Auto) Eos % (Auto) Baso % (Auto) Neut # (Auto) Lymph # (Auto) [place] # (Auto) Eos # (Auto) Baso # (Auto) PT INR APTT D-Dimer 1264 H Sodium Potassium Chloride Carbon Dioxide BUN Creatinine Estimated GFR BUN/Creatinine Ratio Glucose Hemoglobin A1c 5.4 Calcium Total Bilirubin AST ALT Alkaline Phosphatase Total Creatine Kinase CK-MB (CK-2) CK-MB (CK-2) Rel Index Troponin I NT-Pro-B Natriuret Pep 633 H Total Protein Albumin Globulin Albumin/Globulin Ratio Lipase SARS-CoV-2 (PCR) 08/08/20 17:00 WBC RBC Hgb Hct MCV MCH MCHC RDW Plt Count Neut % (Auto) Lymph % (Auto) [place] % (Auto) Eos % (Auto) Baso % (Auto) Neut # (Auto) Lymph # (Auto) [place] # (Auto) Eos # (Auto) Baso # (Auto) PT INR APTT D-Dimer Sodium Potassium Chloride Carbon Dioxide BUN Creatinine Estimated GFR BUN/Creatinine Ratio Glucose Hemoglobin A1c Calcium Total Bilirubin AST ALT Alkaline Phosphatase Total Creatine Kinase CK-MB (CK-2) CK-MB (CK-2) Rel Index Troponin I NT-Pro-B Natriuret Pep Total Protein Albumin Globulin Albumin/Globulin Ratio Lipase SARS-CoV-2 (PCR) Negative Assessment & Plan Assessment & Plan narrative: Joshua Dunham is a 75 y.o. male who has had both prostate and urinary bladder cancer will be observed overnight for chest pain. He has just had another episode of chest pain and will be administered another dose of nitroglycerine. Chest pain r/o ACS -He has had another episode of chest pain, second troponin is normal, EKG NSR. -Echo in am -Pharmacological stress test -Start ASA 81 mg -Received nitro X 2 in the ED -EKG shows no ischemic changes Hypertension Start/continue HLD -Lipid panel, pending -Increase atorvastatin from 20 mg to 80 mg po at bedtime Risk stratification -Fasting lipid panel -A1c 5.4% Probable Acute on chronic CKD stage IV with a GFR of 27.6 -Creatinine is 2.33, unknown what his baseline -Possibly due to dehydration -Gentle hydration with NS at 100 ml/hour X 1 liter to avoid volume over load VTE prophylaxis: Wells risk score: 5.5 Heparin 5000 units bid ordered due to patient's impaired renal function Consults: none consult and involvement is appreciated. Patient is observation status as his stay is not likely to exceed 2 midnights. FEN: NS at 100 ml/hour X 1 liter, , BMP and magnesium in the am. Dispo: unknown at this time Code Status: Limited code, no cardiac rescusitation, intubation okay as discussed with patient COVID-19 COVID-19 status: Negative Result date/Date tested (Pos, Neg/Pending): 08/08/20 Scores Wells' Criteria for PE Clinical signs and symptoms of DVT: Yes PE is #1 Dx or equally likely: No Heart rate > 100: No Immobilization at least 3 days or surg in previous 4 weeks: Yes History of PE or DVT: No Hemoptysis: No Malignancy w/Treatment within 6 months or palliative: Yes Wells' PE Score total: 5.5 Quality VTE Deep Vein Thrombosis/Pulmonary Embolism Present on Admission: No MIPS - Admit I confirm the patient?s Advance Care Plan is present, Code status is documented, Surrogate decision maker is in patient?s record [If Yes, STOP here]: Yes
[2020-08-08] MEDS: SODIUM CHLORIDE 0.9% 1,000 ML 100 ML IV (21:20)
[2020-08-08] MEDS: ATORVASTATIN 20 MG TABLET 80 MG PO (21:24)
[2020-08-08] MEDS: HEPARIN 5,000 UNIT/ML VIAL 5000 UNIT SUBCUT (21:30)
[2020-08-08 21:31] LABS: Procalcitonin 0.13 ng/mL (<0.5)
[2020-08-08 22:49] LABS: Creatine Kinase < 20 U/L (55-170)
[2020-08-08 23:02] LABS: Troponin I < 0.012 ng/mL (0.01-0.034)
--- NOTE | 2020-08-08 23:18 | PC.NURSE ---
Admit/Evening Shift Note- Patient arrived to room via wheelchair at 1930. Patient able to walk with steady gait on his own from hallway to bed. Patient alert and oriented and able to make needs known to staff. Admit questions done, home medications reviewed, physical assessment done, and skin check completed. Patient oriented to bed and bed controls, room, lights, phone, menu, bathroom, and call webber/tv remote. Patient agrees to call for assistance. Safety measures in place. Callbell and phone within reach. will continue to monitor.
[2020-08-09] VITALS (7 sets, daily range): BP systolic 129–147; BP diastolic 74–90; PULSE 90–104; RESP 16–20; TEMP 36.7–37.6; O2SAT 96–99
--- NOTE | 2020-08-09 | DI.NM.S_ITS ---
PROCEDURE: NM ADRIEL PERF SPECT R&S PHARM Rest and pharmacological stress myocardial perfusion SPECT with gated imaging and ejection fraction RADIOPHARMACEUTICAL: 12.3 mCi Tc-99m tetrafosmin IV at rest and 24.6 mCi Tc-99m tetrafosmin IV at peak effect of pharmacological stress. [id number]-zoabtjza was performed. INDICATIONS: chest pain TECHNIQUE: Radiopharmaceutical was injected at peak stress test, and also at rest. SPECT images were obtained. SPECT myocardial perfusion images were displayed in short axis, horizontal long axis, and vertical long axis views. Gated images were reviewed using Sonoma software. COMPARISON: None. CARDIAC STRESS: A pharmacologic stress test was performed under the supervision of an attending staff, using an infusion of lexiscan 0.4mg IV X1. Hemodynamic data: There is normal blood pressure and heart rate response to pharmacologic stress. Symptoms: The patient denied anginal chest pain. Aminophylline: none EKG: No diagnostic changes of ischemia; no ectopy. FINDINGS: Raw data: There is good myocardial uptake of radiotracer. No significant motion artifacts. Zhli-af-gbdda ratio is 0.34 (normal is less than 0.38 for tetrafosmin tracer). Left ventricle function: Gated images demonstrate normal left ventricular wall thickening. No segmental wall motion abnormalities. No transient ischemic dilation; TID is 0.86 (normal less than 1.3). Left ventricle resting end diastolic volume is 99 mL. Left ventricle stress ejection fraction is 74%; normal range is above 45%. Myocardial perfusion: There is normal distribution of activity in the right and left ventricular myocardium. No fixed or reversible perfusion defects. IMPRESSION: Low risk, normal pharmaceutical nuclear stress test 1) No perfusion evidence of ischemia or infarction. 2) Normal left ventricular size, wall motion, and systolic function (EF post stress 74%). 3) No ECG evidence of ischemia. 4) No angina during the study. 5) No prior nuclear stress test available for comparison. Dictated by: Ray Nagy MD on 08/09/2020 at 17:40 Approved by: Ray Nagy MD on 08/09/2020 at 17:42
[2020-08-09] MEDS: NITROGLYCERIN 0.4 MG SL TAB SL ×2 (00:15→05:46)
--- NOTE | 2020-08-09 00:42 | PC.NURSE ---
Addendum entered by Palma Moore R.N. 08/09/20 05:56: this last episode of chest pressure was unprovoked by activity as patient was just lying in bed. Osvaldo BROCK, was informed of both episodes of chest pain/pressure. Addendum entered by Palma Moore R.N. 08/09/20 05:51: experienced another episode of chest pressure in mid chest with no radiation and no other symptoms. BP 147/79 with HR of 94. No abnormalities noted on telemetry. Pressure severity rated as 3/10 and resolved with 1 NTG. Original Note: patient is alert and oriented but with flat affect. Breath sounds CTA with RA sat of 97%; on continuous oximetry. HRR w/telemetry reading of SR. Initially denied any chest pain/pressure but then sat up on edge of bed to empty urostomy and when he went to lie down had recurrence of mid chest pain which resolved with administration of 1 NTG. BT present and abdomen is soft. Urostomy patent with clear, yellow urine emptied; UA sent to lab. Is able to turn himself. Reports generalized weakness so instructed to call staff when wanting to get up out of bed and patient verbalizes understanding stating I don't want to fall. Denies other pain. Will be having echo and stress test in a.m. so will be NPO 4h prior. Fall risk score is moderate.
[2020-08-09 00:43] LABS: Bilirubin Urine UA NEGATIVE (NEGATIVE); Color Urine UA YELLOW; Glucose Urine UA NEGATIVE (Negative); Ketones Urine UA NEGATIVE (NEGATIVE); Leukocyte Esterase Urine UA 3+ (NEGATIVE); Nitrite Urine UA NEGATIVE (Negative); Occult Blood Urine UA 1+ (Negative); Protein Urine UA NEGATIVE (Negative); Urobilinogen Urine UA 0.2 E.U./dL (0.2); pH Urine UA 6.5 (4.5-8.0)
[2020-08-09 00:47] LABS: Appearance Urine UA Cloudy
[2020-08-09 00:54] LABS: Bacteria Urine Many (>30); Culture Indicated Urine Specimen Cultured; RBC Urine 1-5/HPF (0-5/HPF); WBC Urine 10-30/HPF (0-5/HPF)
[2020-08-09 03:41] LABS: Add Manual Diff / Slide Review NO; Basophils Absolute Auto 100 /uL (0-100); Eosinophils Absolute Auto 200 /uL (0-450); Eosinophils Percent Auto 2.2 % (2-4); Hematocrit 28.8 % (41-53); Hemoglobin 9.4 g/dL (13.5-17.5); Lymphocytes Absolute Auto 1500 /uL (1100-4500); Lymphocytes Percent Auto 13.5 % (25-40); Mean Corpuscular HGB Conc 32.6 % (30-36); Mean Corpuscular Hemoglobin 29.5 PG (26-34); Mean Corpuscular Volume 90.5 fL (80-100); Monocytes Absolute Auto 1200 /uL (0-900); Monocytes Percent Auto 11.2 % (3-14); Neutrophils Absolute Auto 7900 /uL (1500-7000); Neutrophils Percent Auto 72.1 % (50-75); Platelet Count 211 X10^3/uL (150-400); Red Blood Cell Count 3.18 X10^6/uL (4.5-5.9); Red Cell Distribution Width 14.5 % (11.6-14.8); White Blood Cell Count 10.9 X10^3/uL (4.5-11.0)
[2020-08-09 03:47] LABS: BUN Creatinine Ratio 18.1 (6-22); Blood Urea Nitrogen 36 mg/dL (9-20); Calcium 8.7 mg/dL (8.4-10.2); Carbon Dioxide 22 mmol/L (22-32); Chloride 109 mmol/L (98-107); Cholesterol 99 mg/dL (140-199); Creatine Kinase < 20 U/L (55-170); Estimated Glomerular Filt Rate 33.1 mL/min (>60); Glucose 114 mg/dL (80-110); HDL Cholesterol 23 mg/dL (40-60); HEMOLYSIS < 15 (0-50); LDL Cholesterol Calculated 55 mg/dL (<100); Potassium 4.7 mmol/L (3.4-5.1); Sodium 138 mmol/L (137-145); Triglycerides 106 mg/dL (35-150)
[2020-08-09 03:58] LABS: Troponin I < 0.012 ng/mL (0.01-0.034)
[2020-08-09 04:52] LABS: Thyroid Stimulating Hormone 1.62 uIU/mL (0.47-4.68)
--- NOTE | 2020-08-09 07:00 | DI.ECHO.S_ITS ---
[place] +---------+ Hospital +---------+ : : [address] : : : : [id number] : : : : Phone: [phone] Echocardiogram Report + + :Name: LAVELLE PALUMBO Study Date: 08/09/2020 Height: 73 in : :[facility] ReadingLocation: Weight: 180 lb : : Gender: Male BSA: 2.1 m2 : :: 1945 Age: 75 yrs BP: 147/79 mmHg: :Reason For Study: Chest pain : :Ordering Physician: ELLA, : :ELÍAS Performed By: Ugo Kaplan : :Referring: ELÍAS JARAMILLO : + + Interpretation Summary Left ventricular systolic function appears normal with an estimated ejection fraction of 60 to 65% without any focal wall motion abnormality. There is mild concentric LVH with a probable diastolic relaxation abnormality but normal filling pressures. The right ventricle appears normal in size and systolic function. Right ventricular systolic pressure cannot be estimated. Both atria are normal in size. There is mild aortic valve sclerosis without stenosis with mild aortic regurgitation but no other valvular abnormality. Procedure: A two-dimensional transthoracic echocardiogram with color flow and Doppler was performed. The study quality was technically adequate. There is no prior echocardiogram noted for this patient. The patient was in sinus rhythm with heart rates between 92-99 bpm during the exam. Left Ventricle: The left ventricle is normal in size. There is mild concentric left ventricular hypertrophy. Left ventricular systolic function appears normal without focal wall motion abnormalities. The ejection fraction is estimated to be 60-65%. Diastolic parameters suggest a relaxation abnormality of the left ventricle, consistent with probable normal filling pressures. Right Ventricle: The right ventricle is normal in size and function. Atria: Both atria are normal in size. There is no Doppler evidence for an interatrial shunt. Mitral Valve: The mitral valve is normal in structure and function. There is trace mitral regurgitation. Aortic Valve: The aortic valve is normal in structure and function. The aortic valve is slightly calcified. The aortic valve opens well. There is mild aortic regurgitation. Tricuspid Valve: The tricuspid valve is normal in structure and function. No tricuspid regurgitation. Pulmonary artery pressures cannot be estimated because of the lack of a measurable TR jet velocity. Pulmonic Valve: The pulmonic valve is normal in structure and function. There is no pulmonic valvular regurgitation. There is no other significant valvular heart disease. Great Vessels: The aortic root is normal size. The ascending aorta could not be visualized. The IVC was not well visualized secondary to technical limitations making central venous pressures difficult to estimate. Pericardium/ Pleura There is no pericardial effusion. There is no pleural effusion. MMode/2D Measurements & Calculations LVIDd: 4.3 cm LVOT diam: 2.1 cm LVIDs: 2.8 cm Ao root diam: 3.4 cm FS: 34.1 % IVSd: 1.2 cm LVPWd: 1.1 cm LV almeida. diameter/BSA (cm/m^2): 2.1 LV sys. diameter/BSA (cm/m^2): 1.4 LA A2 area: 13.5 cm2 RA long axis: 5.0 cm LA A4 area: 15.0 cm2 RA area: 16.0 cm2 LA length (vol): 4.9 cm RA vol: 43.1 ml LA vol: 35.3 ml RA : 21.0 ml/m2 LA vol index: 17.1 ml/m2 TAPSE: 1.7 cm Doppler Measurements & Calculations Ao V2 max: 150.5 cm/sec LVOT Max Johnny: 100.5 cm/sec Ao V2 mean: 110.8 cm/sec LV V1 max P.0 mmHg Ao max P.1 mmHg LV V1 VTI: 17.2 cm Ao mean P.3 mmHg MITUL(I,D): 2.6 cm2 Ao V2 VTI: 23.0 cm MITUL(V,D): 2.3 cm2 sev ratio: 0.75 MITUL indexed to BSA (cm^2/m^2): 1.3 AI P1/2t: 516.5 msec AI dec slope: 281.8 cm/sec2 MV E max johnny: 55.7 cm/sec PA pr(Accel): 49.9 mmHg MV A max johnny: 71.7 cm/sec MV E/A: 0.78 Med Peak E' Johnny: 8.6 cm/sec E/E' med: 6.4 Lat Peak E' Johnny: 12.2 cm/sec E/E' lat: 4.6 E/e' average: 5.5 MV dec time: 0.42 sec SV([facility]): 59.6 ml Reading Physician:01:09 PM
[2020-08-09] MEDS: HEPARIN 5,000 UNIT/ML VIAL 5000 UNIT SUBCUT (10:07)
[2020-08-09] MEDS: ASPIRIN EC 81 MG TABLET PO (10:08)
[2020-08-09] MEDS: SODIUM CHLORIDE 0.9% FLUSH 10 ML IV (10:08)
[2020-08-09] MEDS: MORPHINE 2 MG/ML INJ IV (12:46)
--- NOTE | 2020-08-09 14:51 | CM.IDA ---
Initial DCP Assessment Note Pt is a 75 yo male, resident of [place], presents w/spouse d/t chest pain. PMH includes prostate cancer and recent dx of bladder CA w/hospitalization for bladder removal, approx 25lb weight loss since Apr. Patient admitted observation for chest pain r/o. PCP: Not listed Payer: [facility] Reviewed chart, patient has had echo and both parts of his stress test today, now awaiting Dr Augustine's input. Met w/patient during multidisciplinary rounds this morning and again this afternoon, introduced role. Patient's affect is flat, quiet, patient keeps eyes closed for our conversation, both visits. Patient denies needs from this [employer], states his Suzy has been taking good care of me since returning home from his hospitalization in July. Patient admits feeling fatigued, however, plans to return home w/spouse and close outpatient f/u. No needs expected from DC planning team although will remain available in case this changes before DC. Contact information left on white board for patient and/or spouse to use if needs arise. AMANDA Goodman Discharge Planning/Care Management CM Discharge Assessment Start: 08/09/20 14:48 Freq: Status: Active Protocol: Document 08/09/20 14:48 CLAUDIO (Rec: 08/09/20 14:51 CLAUDIO [id number]) Discharge Planning Assessment Assigned Mechanical Engineering Specialist AMANDA Harper DPOA/Assigned Designee Name Suzy Dunham, spouse Contact Information [phone] Advance Directives? Yes Advance Directives on File No History Provided By Patient Prior Living Arrangements House Household Members spouse Type of transporation used prior to Relies on Others admit Independent with ADL's Yes Is patient alert and oriented? Yes Needs Assistance With Meal Prep,Managing Medications ,Home Chores / Shopping Patient/Family Preference Home with Home Health Barriers to Discharge No Comment Resumption of Home health services Discharge Plan Home Transportation Arrangement Family Additional Comment Resumption of HH RN
--- NOTE | 2020-08-09 16:13 | PC.NURSE ---
Addendum entered by Cathleen Allison R.N. 08/09/20 19:31: Discharge order generated by Dr. Augustine. Pt continues to deny chest pain. Tele dc'd after notifying ICU of discharge. Heplock dc'd intact. Pt contacts spouse who will meet pt at E.R. entrance. Assisted pt to empty urostomy. Reviewed discharge instructions with pt in written and verbal format. Questions answered as appropriate. Pt is weak, but steady on feet and able to transfer self into wheelchair for discharge home. Pt left hospital in stable condition with all personal effects accounted for. Original Note: Pt lying quietly in bed and states, I just woke up. Denies chest pain or pressure. Denies nausea. Pt reports awaiting results of stress test. Urostomy to right abdomen in place with clear, yellow urine in bag. Per dayshift report, pt manages this independently. Lungs are clear throughout. Pt taking sips orange juice at bedside.
--- NOTE | 2020-08-09 17:41 | P.DS_ITS ---
History of Present Illness History of Present Illness Date Patient Seen: 08/09/20 Chief complaint: Chest pressure relieved w/nitroglycerine Narrative: Joshua Dunham is a very pleasant 75 y.o. male with hyperlipidemia and a recent diagnosis and surgery for bladder cancer. He woke up this morning feeling like he had pressure on his chest. Stated the sensation did not migrate to his arm or jaw. He presented to the ED and was administered nitro and stated the pain went away immediately. He denies fever, sweats or chills, vision changes, has chronic hearing deficits and wears hearing aids, denies shortness of breath, nausea, abdominal pain, diarrhea or constipation. He does state he has had a moderate appetite and has lost 25 lbs since the beginning of the year. In April, he was treated for a bladder infection, it then was thought to recur and he had hematuria. In May of this year, he underwent a cystoscopy, they removed a number of polyps for biopsy and was found to have wi iona metastatic cancer of the bladder but confined to the bladder. It was surgically removed on July 14 and he now has a urostomy bag. States he has lost 10 lbs since the surgery, but his appetite is returning. Stated during his hospital stay, his blood pressure was variable sometimes spiking up to the high 190s and stated was adminstered one time doses of medications when it was high. He was hospitalized at [facility] from July 15- of this year. Patient states he completed the second of the Moderna Sars Cov 2 vaccine one month ago. CTA of the chest was negative for a PE but concerning for The upper abdominal aorta measures up to 3.9 cm in diameter, and may reflect a partially imaged abdominal aortic aneurysm. Consider follow-up CT abdomen and pelvis., vascular ultrasound was negative for DVT. Patient is afebrile, blood pressure 146/81, heart rate 92, respiratory rate 18, oxygen saturation 97% on room air, he weighs 81.6 kg BMI of 23.7. WBC is 15.4 with a left shift, RBC 3.71, hemoglobin 10.9, hematocrit 33.8, platelet count 245, D-dimer was elevated at 1264, sodium 140, p otassium 4.8, chloride 105, bicarb 24, BUN 46, creatinine 2.33, GFR is 27.6, glucose 136, a A1c 5.4, liver enzymes within normal limits, 1st troponin was 0.012, BNP elevated at 633, COVID-19 PCR is negative. Discharge Providers Provider Date of admission: 08/08/20 18:58 Discharge Date: 08/09/20 Discharge provider: Yoli Augustine MD Summary Hospital Course Discharge Diagnosis: 1. Chest pain, atypical, myocardial perfusion scan no evidence of reversible ischemia 2. Bladder cancer 3. Hyperlipidemia 4. History of prostate cancer 5. Chronic kidney disease stage 3 Hospital Course: Patient was admitted to the hospital for evaluation of chest pain. Patient underwent a myocardial perfusion scan which showed no evidence of ischemia a g showed left ventricular systolic function normal with ejection fraction 60 65% without any focal wall motion abnormality. There was mild co ncentric LVH with prior multiple diastolic relaxation. Right ventricle appeared normal both atria are normal. There was mild aortic valve sclerosis patient had a CT angio of the chest in the emergency room which showed no evidence of pulmonary embolism or aortic dissection. There was a torturous and ectatic thoracic aorta. The upper abdominal aorta measures 3.9 cm. Recommendations were for follow-up CT of the abdomen and pelvis. Id this was discussed with the patient and he is aware of his abdominal aortic aneurysm and will be following up with his primary care for stenting in the future. Patient did have some chest pain last evening which was nitro but no further pain at this time. He is deemed appropriate for discharge and will discharge home he will follow-up with his primary care physician next week for further evaluation. Status at Discharge Cognitive/behavioral status at discharge: oriented Functional status at discharge: independent ambulation Overall status at discharge: patient is back to baseline Time Spent with Patient Time spent: Less than 30 minutes Exam Vital Signs (past 8 hours): - 08/09/20 12:29 08/09/20 16:00 Temperature 98.7 F 99.7 F H Pulse Rate 101 H 104 H Respiratory Rate 18 17 Blood Pressure 147/90 H 138/78 Pulse Oximetry 98 99 Oxygen Delivery Method Room Air Oxygen Flow Rate 0 Narrative Exam Narrative: Pleasant male resting comfortably in no obvious distress Lungs: Clear to auscultation Cardiac exam regular rate and rhythm normal S1-S2 with a 2/6 systolic ejection murmur Abdomen: Soft and nontender ostomy bag in place, significant amount of urine in the urostomy bag Extremities: No edema Objective Labs Result Diagrams: 08/09/20 03:28 08/09/20 03:28 Labs: Laboratory Results - last 24 hr 08/08/20 08/08/20 08/08/20 15:42 15:42 15:42 WBC RBC Hgb Hct MCV MCH MCHC RDW Plt Count Neut % (Auto) Lymph % (Auto) [place] % (Auto) Eos % (Auto) Baso % (Auto) Neut # (Auto) Lymph # (Auto) [place] # (Auto) Eos # (Auto) Baso # (Auto) Sodium Potassium Chloride Carbon Dioxide BUN Creatinine Estimated GFR BUN/Creatinine Ratio Glucose Hemoglobin A1c 5.4 Calcium Total Creatine Kinase CK-MB (CK-2) CK-MB (CK-2) Rel Index Troponin I NT-Pro-B Natriuret Pep 633 H Triglycerides Cholesterol LDL Cholesterol, Calc HDL Cholesterol Procalcitonin 0.13 TSH Urine Color Urine Appearance Urine pH Ur Specific [place] Urine Protein Urine Glucose (UA) Urine Ketones Urine Occult Blood Urine Nitrate Urine Bilirubin Urine Urobilinogen Ur Leukocyte Esterase Urine RBC Urine WBC Urine Bacteria Ur Culture Indicated? SARS-CoV-2 (PCR) 08/08/20 08/08/20 08/09/20 17:00 21:23 00:15 WBC RBC Hgb Hct MCV MCH MCHC RDW Plt Count Neut % (Auto) Lymph % (Auto) [place] % (Auto) Eos % (Auto) Baso % (Auto) Neut # (Auto) Lymph # (Auto) [place] # (Auto) Eos # (Auto) Baso # (Auto) Sodium Potassium Chloride Carbon Dioxide BUN Creatinine Estimated GFR BUN/Creatinine Ratio Glucose Hemoglobin A1c Calcium Total Creatine Kinase < 20 L CK-MB (CK-2) TNP CK-MB (CK-2) Rel Index TNP Troponin I < 0.012 NT-Pro-B Natriuret Pep Triglycerides Cholesterol LDL Cholesterol, Calc HDL Cholesterol Procalcitonin TSH Urine Color Yellow Urine Appearance Cloudy Urine pH 6.5 Ur Specific [place] 1.010 Urine Protein Negative Urine Glucose (UA) Negative Urine Ketones Negative Urine Occult Blood 1+ H Urine Nitrate Negative Urine Bilirubin Negative Urine Urobilinogen 0.2 Ur Leukocyte Esterase 3+ H Urine RBC 1-5/hpf D Urine WBC 10-30/hpf H Urine Bacteria Many (>30) H Ur Culture Indicated? Specimen cultured SARS-CoV-2 (PCR) Negative 08/09/20 08/09/20 08/09/20 03:28 03:28 03:28 WBC 10.9 RBC 3.18 L Hgb 9.4 L Hct 28.8 L MCV 90.5 MCH 29.5 MCHC 32.6 RDW 14.5 Plt Count 211 Neut % (Auto) 72.1 Lymph % (Auto) 13.5 L [place] % (Auto) 11.2 Eos % (Auto) 2.2 Baso % (Auto) 1.0 Neut # (Auto) 7900 H Lymph # (Auto) 1500 [place] # (Auto) 1200 H Eos # (Auto) 200 Baso # (Auto) 100 Sodium 138 Potassium 4.7 Chloride 109 H Carbon Dioxide 22 BUN 36 H Creatinine 1.99 H Estimated GFR 33.1 L BUN/Creatinine Ratio 18.1 Glucose 114 H Hemoglobin A1c Calcium 8.7 Total Creatine Kinase < 20 L CK-MB (CK-2) TNP CK-MB (CK-2) Rel Index TNP Troponin I < 0.012 NT-Pro-B Natriuret Pep Triglycerides 106 Cholesterol 99 L LDL Cholesterol, Calc 55 HDL Cholesterol 23 L Procalcitonin TSH Urine Color Urine Appearance Urine pH Ur Specific [place] Urine Protein Urine Glucose (UA) Urine Ketones Urine Occult Blood Urine Nitrate Urine Bilirubin Urine Urobilinogen Ur Leukocyte Esterase Urine RBC Urine WBC Urine Bacteria Ur Culture Indicated? SARS-CoV-2 (PCR) 08/09/20 03:28 WBC RBC Hgb Hct MCV MCH MCHC RDW Plt Count Neut % (Auto) Lymph % (Auto) [place] % (Auto) Eos % (Auto) Baso % (Auto) Neut # (Auto) Lymph # (Auto) [place] # (Auto) Eos # (Auto) Baso # (Auto) Sodium Potassium Chloride Carbon Dioxide BUN Creatinine Estimated GFR BUN/Creatinine Ratio Glucose Hemoglobin A1c Calcium Total Creatine Kinase CK-MB (CK-2) CK-MB (CK-2) Rel Index Troponin I NT-Pro-B Natriuret Pep Triglycerides Cholesterol LDL Cholesterol, Calc HDL Cholesterol Procalcitonin TSH 1.62 Urine Color Urine Appearance Urine pH Ur Specific [place] Urine Protein Urine Glucose (UA) Urine Ketones Urine Occult Blood Urine Nitrate Urine Bilirubin Urine Urobilinogen Ur Leukocyte Esterase Urine RBC Urine WBC Urine Bacteria Ur Culture Indicated? SARS-CoV-2 (PCR) [facility] Medical History (Updated 08/08/20 @ 21:13 by DELMY Bhatia) Bladder polyps Hyperlipidemia Impaired glucose tolerance Prostate cancer Surgical History (Updated 08/08/20 @ 21:13 by DELMY Bhatia) Bladder cancer H/O prostatectomy S/P ureteral stent placement Family History (Updated 08/08/20 @ 20:58 by DELMY Bhatia) Mother CVA (cerebral vascular accident) Father Lung cancer Tobacco user Sister Alive and well Social History household members: spouse Smoking Status: Former smoker alcohol intake: never Discharge Assessment & Plan Assessment and Plan Assessment: 1. Chest pain, now resolved 2. Chronic kidney disease stage 3 3. Bladder cancer, status post recent surgery 4. History of prostate cancer 5. Hyperlipidemia Plan of Treatment: Discharge home Follow-up with primary care provider next week Discharge Plan Discharge Plan Patient Disposition: Home Discharge orders & Medications Prescriptions: Continued atorvastatin [Lipitor] 20 mg Tablet 20 mg PO BEDTIME RF: 0 polyethylene glycol 3350 17 gram/dose powder 17 g PO DAILY Qty: 238 RF: 0 Discharge Health Status Multidrug resistant organism: No MDRO Diet/Activity/Treatments Diet: Low-cholesterol Discharge Data Attending Provider: Yoli Augustine VTE Deep Vein Thrombosis/Pulmonary Embolism Present on Admission: No
== END 2020-08-09 18:35 | disposition home or self-care (01) ==
LOC: ED 18:58 → AC 18:59
PROVIDERS: Emergency Medicine; Nurse Practitioner Family; Admitting Provider Internal Medicine; Emergency Provider Emergency Medicine; Referring Provider Emergency Medicine; Visit Provider Internal Medicine
DX: R07.9 Chest pain, unspecified (principal); N18.30 Chronic kidney disease, stage 3 unspecified; C67.9 Malignant neoplasm of bladder, unspecified; Z90.6 Acquired absence of other parts of urinary tract; Z93.6 Other artificial openings of urinary tract status; Z85.46 Personal history of malignant neoplasm of prostate; E78.5 Hyperlipidemia, unspecified; Z20.822 Contact with and (suspected) exposure to COVID-19
CPT/HCPCS: 36415; 71045; 71275; 78452; 80048; 80053; 80061; 81001; 82550; 83036; 83690; 83880; 84145; 84443; 84484; 85025; 85379; 85610; 85730; 87077; 87086; 87186; 87635; 93005; 93017; 93306; 93970; 94762; 96361; 96372; 96374; 99284; C9803; G0378; A9502; J1644; J2270; J2785; Q9967

== ENCOUNTER → 2020-08-27 13:00 | Outpatient (ROUT) | payer OTHER, SELFPAY ==
[2020-08-08 19:17] VITALS: BMI 23.7
[2020-08-27 13:11] LABS: Add Manual Diff / Slide Review NO; Basophils Absolute Auto 100 /uL (0-100); Basophils Percent Auto 0.6 % (0-2); Eosinophils Absolute Auto 200 /uL (0-450); Eosinophils Percent Auto 2.4 % (2-4); Hemoglobin 9.4 g/dL (13.5-17.5); Lymphocytes Absolute Auto 1500 /uL (1100-4500); Lymphocytes Percent Auto 14.2 % (25-40); Mean Corpuscular HGB Conc 32.5 % (30-36); Mean Corpuscular Volume 89.2 fL (80-100); Monocytes Absolute Auto 1200 /uL (0-900); Monocytes Percent Auto 11.2 % (3-14); Neutrophils Absolute Auto 7400 /uL (1500-7000); Neutrophils Percent Auto 71.6 % (50-75); Platelet Count 239 X10^3/uL (150-400); Red Blood Cell Count 3.25 X10^6/uL (4.5-5.9); White Blood Cell Count 10.4 X10^3/uL (4.5-11.0)
[2020-08-27 13:32] LABS: Alanine Aminotransferase 18 IU/L (<50); Albumin 3.2 g/dL (3.5-5.0); Albumin Globulin Ratio 0.8 (1.0-2.8); Alkaline Phosphatase 75 U/L (38-126); Aspartate Aminotransferase 25 IU/L (17-59); BUN Creatinine Ratio 19.3 (6-22); Bilirubin Total 0.2 mg/dL (0.2-1.3); Blood Urea Nitrogen 46 mg/dL (9-20); Calcium 9.2 mg/dL (8.4-10.2); Carbon Dioxide 20 mmol/L (22-32); Chloride 106 mmol/L (98-107); Estimated Glomerular Filt Rate 26.9 mL/min (>60); Glucose 110 mg/dL (80-110); HEMOLYSIS < 15 (0-50); Potassium 4.4 mmol/L (3.4-5.1); Sodium 135 mmol/L (137-145); Total Protein 7.2 g/dL (6.3-8.2)
== END ==
PROVIDERS: Visit Provider Internal Medicine
DX: C67.8 Malignant neoplasm of overlapping sites of bladder (principal)
CPT/HCPCS: 80053; 85025

== ENCOUNTER 2021-07-15 14:23 | Emergency (ER) | payer OTHER, SELFPAY ==
[2020-08-08 19:17] VITALS: BMI 23.7
[2021-07-15 14:48] VITALS: BP 113/61; PULSE 85; RESP 22; TEMP 37.1; O2SAT 98
--- NOTE | 2021-07-15 15:04 | DI.CT.S_ITS ---
PROCEDURE: CT KIDNEY URETER BLADDER (KUB) INDICATIONS: R flank pain, radiation to groin TECHNIQUE: Axial sections were acquired from the lung bases to the pubic symphysis. Coronal and sagittal reformats were performed. For radiation dose reduction, the following was used: automated exposure control, adjustment of mA and/or kV according to patient size. COMPARISON: [facility], CT, CT ABDOMEN PELVIS WITHOUT CONTRAST, 03/24/2021, 15:53. FINDINGS: Image quality: Excellent. Lung bases: Honeycombing fibrosis is present at the bilateral lung bases. The pleural effusion visualized on the comparison CT dated March 24, 2021 has resolved. The heart is mildly enlarged. No pericardial effusion. Heart: No significant findings. URINARY: Right Kidney: The right kidney is markedly atrophic. The previously visualized right nephrostomy tube has been removed. There is severe right hydronephrosis. No nephrolithiasis. Right Ureter: The ureter is markedly dilated throughout its course. 2 adjacent calculi are visualized at the anastomosis of the distal ureters and the neobladder. The larger of the 2 stones measures 4 mm in diameter (series 2/image 60). This is a new finding when compared with the prior study from 03/24/21. Left Kidney: The left kidney is mildly atrophic. There is a low-density upper pole left cyst. No left nephrolithiasis. There is mild left pelviectasis. Left Ureter: No left hydroureter or ureterolithiasis. Bladder: The bladder is surgically absent. An ileal conduit is present within the right lower quadrant and is decompressed. ABDOMEN: Liver: Unremarkable. Gallbladder: Contracted. Biliary ducts: Unremarkable. Pancreas: Unremarkable. Spleen: Unremarkable. Adrenal Glands: Unremarkable. Stomach and Bowel: Stomach, small bowel loops, and colon are unremarkable. Peritoneum: No abnormal intraperitoneal fluid. No free air. Ventral Wall: No hernia. Abdominal Nodes: No enlarged retroperitoneal or mesenteric lymph nodes. Vessels: There is fusiform dilatation of the thoracoabdominal aorta which measures up to 4.6 cm in oblique axial diameter above the bifurcation. Scattered atheromatous calcifications are present throughout. PELVIS: Pelvic Organs: Unremarkable. Pelvic Nodes: Unremarkable. Miscellaneous: No inguinal hernias are seen. Bones: Unremarkable. IMPRESSION: 1. New, severe right hydronephrosis and hydroureter to the level of the ileal conduit anastomosis. A 4 mm calculus is present in this region suggesting obstructive distal right ureterolithiasis. 2. No other acute intra-abdominal findings. No left hydronephrosis or ureterolithiasis. Dictated by: Sienna García M.D. on 07/15/2021 at 15:47 Approved by: Sienna García M.D. on 07/15/2021 at 15:55
--- NOTE | 2021-07-15 15:04 | ED.ABDPAIN ---
HPI - Abdominal Pain General Chief Complaint: Abdominal Pain Stated Complaint: DIALYSIS PATIENT RIGHT SIDE KIDNEY PAIN Time Seen by Provider: 07/15/21 14:45 Source: patient Mode of arrival: Ambulatory History of Present Illness HPI narrative: 76-year-old male former smoker with history of bladder cancer and hemodialysis presents with his in the chief complaint of episodic right flank pain over the course of the day. He receives hemodialysis on Mondays and Fridays and had a full run yesterday. He says it went well and there were no issues. Over the course of the day he has developed pain as stated. He states it comes and goes and there is no obvious provocation or palliation, on occasion it seems to radiate around to the front. He states it is mild but just nagging enough for him to want to be checked. He denies other symptoms such as dizziness, weakness or lightheadedness. He denies any chest pain or shortness of breath. He denies nausea, vomiting, fever chills Related Data Home Medications Medication Instructions Recorded Confirmed atorvastatin 20 mg tablet (Lipitor) 20 mg PO BEDTIME 08/08/20 08/08/20 Previous Rx's Medication Instructions Recorded polyethylene glycol 3350 17 17 g PO DAILY #238 g 05/13/20 gram/dose oral powder tamsulosin 0.4 mg capsule (Flomax) 0.4 mg PO DAILY #30 cap 07/15/21 Allergies Allergy/AdvReac Type Severity Reaction Status Date / Time No Known Drug Allergies Allergy Verified 08/08/20 14:32 Review of Systems Review of Systems Narrative: GENERAL: Denies chills, fatigue, malaise, fever, sweats. HEENT: Denies sinus pain, ear pain, sore throat, difficulty swallowing, dizziness. RESPIRATORY: Denies dyspnea, cough, wheezing, hemoptysis, sputum. CARDIOVASCULAR: Denies chest pain, palpitations, orthopnea, edema, GASTROINTESTINAL: See HPI : See HPI MUSCULOSKELETAL: denies weakness, joint pain, or bony pain SKIN: Denies rash, skin lesions, or other NEUROLOGIC: Denies weakness, headache, numbness, change in speech, confusion, seizures, incoordination. PSYCHIATRIC: No concerning psychosocial issues. 12 point review of systems is negative except for those stated above Patient History Medical History Bladder polyps Hyperlipidemia Impaired glucose tolerance Prostate cancer Surgical History Bladder cancer H/O prostatectomy S/P ureteral stent placement Family History Mother CVA (cerebral vascular accident) Father Lung cancer Tobacco user Sister Alive and well Social History household members: spouse Smoking Status: Former smoker alcohol intake: never Smoking Status: Former smoker alcohol intake frequency: other Substance Use Type: does not use Exam Narrative Exam Narrative: GENERAL: [76] year old patient appears stated age. Well-developed patient, in mild distress. HEAD: Atraumatic. Normocephalic. EYES: Pupils equal round and reactive. Extraocular motions intact. No scleral icterus. No injection or drainage. ENT: Nose without bleeding, purulent drainage. Throat without erythema, tonsillar hypertrophy or exudate. Airway patent. NECK: Trachea midline. Non tender CARDIOVASCULAR: Regular rate and rhythm without murmurs, gallops, or rubs. RESPIRATORY: Clear to auscultation. Breath sounds equal bilaterally. No wheezes, rales, or rhonchi. GASTROINTESTINAL: Abdomen soft, non-tender, nondistended. EXTREMITIES: No edema or joint tenderness. BACK: Nontender without deformity or crepitance. No flank tenderness. NEURO: AOx3. SKIN: No rash or erythema of visible areas Initial Vital Signs Initial Vital Signs: Vital Signs Temperature 98.7 F 07/15/21 14:48 Pulse Rate 85 07/15/21 14:48 Respiratory Rate 22 07/15/21 14:48 Blood Pressure 113/61 07/15/21 14:48 Pulse Oximetry 98 07/15/21 14:48 Course Orders Ordered: ED Orders 07/15/21 15:04 CT kidney ureter bladder (KUB) Stat 07/15/21 16:55 CBC Auto Diff [Complete Blood Count AUTO DIFF] Stat CMP [Comprehensive Metabolic Panel] Stat Consultations Consultation #1: Upon receipt of CT I placed a call to Nephrology on-call for Dr. Garcia to discuss plans for follow-up. No specific recommendations, recommend treat with typical medications S stone will likely pass. If patient should require any urologic intervention he will need to be at a facility that has not only urology and nephrology but also Interventional Radiology Consultation #2: Discussed with on-call Urology (Dr. Chakraborty), he sure the opinion that there are no specific changes in the approach given the patient's complex medical history. Recommends Flomax and other pain control with avoidance of NSAIDs and follow up at a facility with not only urology but Nephrology and Interventional Radiology Vital Signs Vital signs: Vital Signs - 8 hr 07/15/21 14:48 07/15/21 16:13 Temperature 98.7 F Pulse Rate 85 73 Respiratory Rate 22 Blood Pressure 113/61 103/59 L Pulse Oximetry 98 92 MDM - Abdominal Pain Lab Data Result diagrams: 07/15/21 16:55 07/15/21 16:55 Labs: Lab Results 07/15/21 07/15/21 Range/Units 16:55 16:55 WBC 10.5 (4.5-11.0) X10^3/uL RBC 3.78 L (4.5-5.9) X10^6/uL Hgb 11.6 L (13.5-17.5) g/dL Hct 35.4 L (41-53) % MCV 93.7 (80-100) fL MCH 30.7 (26-34) PG MCHC 32.8 (30-36) % RDW 16.0 H (11.6-14.8) % Plt Count 116 L (150-400) X10^3/uL Neut % (Auto) 75.8 H (50-75) % Lymph % (Auto) 9.9 L (25-40) % [place] % (Auto) 10.5 (3-14) % Eos % (Auto) 3.1 (2-4) % Baso % (Auto) 0.7 (0-2) % Neut # (Auto) 7900 H (7312-2816) /uL Lymph # (Auto) 1000 L (8665-2325) /uL [place] # (Auto) 1100 H (0-900) /uL Eos # (Auto) 300 (0-450) /uL Baso # (Auto) 100 (0-100) /uL Sodium 137 (137-145) mmol/L Potassium 4.5 (3.4-5.1) mmol/L Chloride 97 L (98-107) mmol/L Carbon Dioxide 30 (22-32) mmol/L BUN 50 H (9-20) mg/dL Creatinine 3.97 H (0.66-1.25) mg/dL Estimated GFR 15.1 L (>60) mL/min BUN/Creatinine Ratio 12.6 (6-22) Glucose 96 (80-110) mg/dL Calcium 9.0 (8.4-10.2) mg/dL Total Bilirubin 0.4 (0.2-1.3) mg/dL AST 26 (17-59) IU/L ALT 31 (<50) IU/L Alkaline Phosphatase 61 (38-126) U/L Total Protein 8.5 H (6.3-8.2) g/dL Albumin 4.4 (3.5-5.0) g/dL Globulin 4.1 (1.7-4.1) g/dL Albumin/Globulin Ratio 1.1 (1.0-2.8) Imaging Data CT scan - abdomen/pelvis: Radiologist's Impression: [address] [address] [address] Scan Report Signed Patient: Joshua Dunham MR#: [id number] : 1945 Acct:[id number] Age/Sex: 76 / M Date of Service: 07/15/21 Loc: ED Accession Number: [id number] ?? Procedure: CT kidney ureter bladder (KUB) Ordering Provider: Maximo Ambrocio D.O. PROCEDURE:? CT KIDNEY URETER BLADDER (KUB) ? INDICATIONS:? R flank pain, radiation to groin ? TECHNIQUE:? Axial sections were acquired from the lung bases to the pubic symphysis.? Coronal and sagittal reformats were performed.? For radiation dose reduction, the following was used: ?automated exposure control, adjustment of mA and/or kV according to patient size.? ? COMPARISON:? [facility], CT, CT ABDOMEN PELVIS WITHOUT CONTRAST, 03/24/2021, 15:53. ? FINDINGS:? Image quality:? Excellent.? ? Lung bases:? Honeycombing fibrosis is present at the bilateral lung bases.? The pleural effusion visualized on the comparison CT dated March 24, 2021 has resolved.? The heart is mildly enlarged.? No pericardial effusion. Heart:? No significant findings. ? URINARY: Right Kidney:? The right kidney is markedly atrophic.? The previously visualized right nephrostomy tube has been removed.? There is severe right hydronephrosis.? No nephrolithiasis. Right Ureter:? The ureter is markedly dilated throughout its course.? 2 adjacent calculi are visualized at the anastomosis of the distal ureters and the neobladder.? The larger of the 2 stones measures 4 mm in diameter (series 2/image 60).? This is a new finding when compared with the prior study from 03/24/21. ? Left Kidney:? The left kidney is mildly atrophic.? There is a low-density upper pole left cyst.? No left nephrolithiasis.? There is mild left pelviectasis.? Left Ureter:? No left hydroureter or ureterolithiasis. Bladder:? The bladder is surgically absent.? An ileal conduit is present within the right lower quadrant and is decompressed. ? ABDOMEN: Liver:? Unremarkable.? ? Gallbladder:? Contracted. Biliary ducts:? Unremarkable.? ? Pancreas:? Unremarkable.? ? Spleen:? Unremarkable.? ? Adrenal Glands:? Unremarkable.? ? ? Stomach and Bowel:? Stomach, small bowel loops, and colon are unremarkable.? Peritoneum:? No abnormal intraperitoneal fluid.? No free air.? ? Ventral Wall: ? No hernia.? Abdominal Nodes:? No enlarged retroperitoneal or mesenteric lymph nodes.? Vessels:? There is fusiform dilatation of the thoracoabdominal aorta which measures up to 4.6 cm in oblique axial diameter above the bifurcation.? Scattered atheromatous calcifications are present throughout. ? PELVIS: Pelvic Organs:? Unremarkable.? ? Pelvic Nodes: Unremarkable. Miscellaneous: No inguinal hernias are seen. ? ? ? Bones:? Unremarkable. ? IMPRESSION:? ? 1. New, severe right hydronephrosis and hydroureter to the level of the ileal conduit anastomosis.? A 4 mm calculus is present in this region suggesting obstructive distal right ureterolithiasis. ? 2. No other acute intra-abdominal findings.? No left hydronephrosis or ureterolithiasis.? Dictated by: Sienna García M.D. on 07/15/2021 at 15:47 ? ? Approved by: Sienna García M.D. on 07/15/2021 at 15:55 ? MDM Narrative Medical decision making narrative: Patient presents with mild, episodic colicky flank pain. Pain is very well controlled, he is tolerating orals, has no fever or signs of sepsis. Labs are at his baseline. Imaging shows a kidney stone with hydronephrosis. I have consulted with both Nephrology and Urology, both recommend typical treatments with close follow-up. Return precautions given and questions answered to his apparent satisfaction Discharge Plan Departure Patient Disposition: Home Clinical Impression: Kidney calculi, Hydronephrosis Instructions: DI for Kidney Stones Activity Restrictions/Additional Instructions: *You have been diagnosed with [right flank pain due to a 4 mm kidney stone causing hydronephrosis *What to do: *Please continue to take your regular medications as directed. [ x] New medication prescriptions sent to your pharmacy: [[facility] ] [ ] New medication written as a paper prescription [ ] No new medications given *Please follow up with your primary care provider in 2-3 days, call for an appointment. Let them know you were seen in the Emergency Department and that we ask that you be seen in follow up. We will electronically transmit a record of today's note if your PCP is in our system *I have included contact info for the urology group at [facility] for follow up *Return to Emergency Department if you should have any new, worsening or concerning symptoms, such as [fever greater than 101 F, shaking chills, worsening pain, persistent vomiting or other bothersome symptoms] Prescriptions: New tamsulosin [Flomax] 0.4 mg capsule 0.4 mg PO DAILY Qty: 30 0RF No Action atorvastatin [Lipitor] 20 mg Tablet 20 mg PO BEDTIME 0RF polyethylene glycol 3350 17 gram/dose powder 17 g PO DAILY Qty: 238 0RF
[2021-07-15 16:13] VITALS: BP 103/59; PULSE 73; O2SAT 92
[2021-07-15 17:02] LABS: Add Manual Diff / Slide Review NO; Basophils Absolute Auto 100 /uL (0-100); Basophils Percent Auto 0.7 % (0-2); Eosinophils Absolute Auto 300 /uL (0-450); Eosinophils Percent Auto 3.1 % (2-4); Hematocrit 35.4 % (41-53); Hemoglobin 11.6 g/dL (13.5-17.5); Lymphocytes Absolute Auto 1000 /uL (1100-4500); Lymphocytes Percent Auto 9.9 % (25-40); Mean Corpuscular HGB Conc 32.8 % (30-36); Mean Corpuscular Hemoglobin 30.7 PG (26-34); Mean Corpuscular Volume 93.7 fL (80-100); Monocytes Absolute Auto 1100 /uL (0-900); Monocytes Percent Auto 10.5 % (3-14); Neutrophils Absolute Auto 7900 /uL (1500-7000); Neutrophils Percent Auto 75.8 % (50-75); Platelet Count 116 X10^3/uL (150-400); Red Blood Cell Count 3.78 X10^6/uL (4.5-5.9); White Blood Cell Count 10.5 X10^3/uL (4.5-11.0)
[2021-07-15 17:17] LABS: Alanine Aminotransferase 31 IU/L (<50); Albumin 4.4 g/dL (3.5-5.0); Albumin Globulin Ratio 1.1 (1.0-2.8); Alkaline Phosphatase 61 U/L (38-126); Aspartate Aminotransferase 26 IU/L (17-59); BUN Creatinine Ratio 12.6 (6-22); Bilirubin Total 0.4 mg/dL (0.2-1.3); Blood Urea Nitrogen 50 mg/dL (9-20); Carbon Dioxide 30 mmol/L (22-32); Chloride 97 mmol/L (98-107); Estimated Glomerular Filt Rate 15.1 mL/min (>60); Globulin 4.1 g/dL (1.7-4.1); Glucose 96 mg/dL (80-110); HEMOLYSIS < 15 (0-50); Potassium 4.5 mmol/L (3.4-5.1); Sodium 137 mmol/L (137-145); Total Protein 8.5 g/dL (6.3-8.2)
== END 2021-07-15 17:38 | disposition home or self-care (01) ==
PROVIDERS: Emergency Provider Emergency Medicine
DX: N20.0 Calculus of kidney (principal); N13.30 Unspecified hydronephrosis; Z87.891 Personal history of nicotine dependence
CPT/HCPCS: 74176; 80053; 85025; 99283; 99284

== ENCOUNTER → 2021-07-17 10:00 | Outpatient (CLI) | payer OTHER, SELFPAY ==
[2020-08-08 19:17] VITALS: BMI 23.7
--- NOTE | 2021-07-17 10:03 | DI.NM.S_ITS ---
PROCEDURE: NM RENAL FUNCTION W LASIX RADIOPHARMACEUTICAL: 10.7 mCi Tc-99m MAG3 IV and 40 mg furosemide IV. INDICATIONS: Unspecified hydronephrosis TECHNIQUE: The patient was hydrated orally before the examination was begun. After intravenous administration of Tc-99m MAG3, posterior abdominal radionuclide angiogram and sequential (1 minute each frame) renal images were obtained. A time-activity curve for each kidney was generated and analyzed. To evaluate for obstruction, the patient was given 40 mg furosemide via slow intravenous injection after the start of the examination. Sequential images were obtained for up to an additional 20 minutes. COMPARISON: [facility], US, US RENAL LIMITED, 06/10/2021, 12:09. [facility], CT, CT ABDOMEN PELVIS WITHOUT CONTRAST, 03/24/2021, 15:53. [facility], CT, CT KIDNEY URETER BLADDER (KUB), 07/15/2021, 15:13. FINDINGS: Perfusion: There is normal vascular flow to both kidneys. Morphology: Right kidney is decreased in size. The kidneys are normal in shape. The left renal pelvis is mildly dilated. The right renal pelvis did not well fill with tracer, therefore, not well seen. The left ureter is normal in caliber. The right ureter appears dilated. Bladder is not visualized. The patient has history of cystectomy and ileal conduit. Function: Left kidney demonstrates mild delayed cortical uptake and excretion with [id number] activity at just longer than 5 minutes. Right Kidney has poor tracer uptake and excretion. The right kidney contributes 8.2% of total renal function. The left kidney contributes 91.8% of total renal function. Lasix stimulation: After diuretic administration, there is poor clearance of tracer activity from the left renal collecting system. There is not enough right renal pelvic activity to assess clearance of tracer from the right renal collecting system. Unable to calculate T1/2 for either kidneys after Lasix. The estimated pre-Lasix half-time of emptying from the left pelvicaliceal system (T1/2 ) is approximately >20 minutes. Normal emptying half-times are less than 10 minutes; borderline ranges are from 10 to 20 minutes. IMPRESSION: 1. Poor right renal function with the right kidney contributes 8.2% of total renal function. 2. Mildly decreased left renal function. The left kidney contributes 91.8% of total renal function. 3. Unable to assess right renal obstruction because of lack of adequate tracer activity in the right renal collecting system. 4. The estimated T1/2 for left kidney before Lasix is >20 minutes consistent with a degree of obstruction. 5. Absence of bladder consistent with cystectomy. Dictated by: Gael Garcia M.D. on 07/17/2021 at 12:34 Approved by: Gael Garcia M.D. on 07/18/2021 at 10:05
== END ==
PROVIDERS: PCP Internal Medicine; Referring Provider Internal Medicine Nephrology; Visit Provider Internal Medicine Nephrology
DX: N13.30 Unspecified hydronephrosis (principal)
CPT/HCPCS: 78708; A9562

== ENCOUNTER → 2021-11-17 14:38 | Outpatient (CLI) | payer OTHER, SELFPAY ==
[2020-08-08 19:17] VITALS: BMI 23.7
[2021-11-17 16:08] LABS: Add Manual Diff / Slide Review NO; Basophils Absolute Auto 100 /uL (0-100); Basophils Percent Auto 0.7 % (0-2); Eosinophils Absolute Auto 300 /uL (0-450); Eosinophils Percent Auto 3.4 % (2-4); Hematocrit 33.9 % (41-53); Hemoglobin 11.4 g/dL (13.5-17.5); Lymphocytes Absolute Auto 1400 /uL (1100-4500); Lymphocytes Percent Auto 18.4 % (25-40); Mean Corpuscular HGB Conc 33.6 % (30-36); Mean Corpuscular Hemoglobin 33.1 PG (26-34); Mean Corpuscular Volume 98.5 fL (80-100); Monocytes Absolute Auto 700 /uL (0-900); Neutrophils Absolute Auto 5300 /uL (1500-7000); Neutrophils Percent Auto 68.5 % (50-75); Platelet Count 139 X10^3/uL (150-400); Red Blood Cell Count 3.44 X10^6/uL (4.5-5.9); Red Cell Distribution Width 14.2 % (11.6-14.8); White Blood Cell Count 7.8 X10^3/uL (4.5-11.0)
[2021-11-17 17:20] LABS: Alanine Aminotransferase 47 IU/L (<50); Albumin 4.1 g/dL (3.5-5.0); Albumin Globulin Ratio 1.2 (1.0-2.8); Alkaline Phosphatase 73 U/L (38-126); Aspartate Aminotransferase 32 IU/L (17-59); Bilirubin Total 0.2 mg/dL (0.2-1.3); Blood Urea Nitrogen 91 mg/dL (9-20); Calcium 8.9 mg/dL (8.4-10.2); Carbon Dioxide 24 mmol/L (22-32); Chloride 105 mmol/L (98-107); Estimated Glomerular Filt Rate 18 mL/min (>60); Globulin 3.5 g/dL (1.7-4.1); Glucose 79 mg/dL (80-110); HEMOLYSIS < 15 (0-50); Potassium 4.7 mmol/L (3.4-5.1); Sodium 141 mmol/L (137-145); Total Protein 7.6 g/dL (6.3-8.2)
== END ==
PROVIDERS: PCP Internal Medicine; Referring Provider Internal Medicine Nephrology; Visit Provider Internal Medicine Nephrology
DX: N18.6 End stage renal disease (principal)
CPT/HCPCS: 36415; 80053; 85025

== ENCOUNTER → 2021-11-20 13:53 | Outpatient (CLI) | payer OTHER, SELFPAY ==
[2020-08-08 19:17] VITALS: BMI 23.7
[2021-11-20 14:52] LABS: BUN Creatinine Ratio 26.2 (6-22); Blood Urea Nitrogen 84 mg/dL (9-20); Carbon Dioxide 21 mmol/L (22-32); Chloride 110 mmol/L (98-107); Estimated Glomerular Filt Rate 19 mL/min (>60); Glucose 88 mg/dL (80-110); HEMOLYSIS 17 (0-50); Sodium 140 mmol/L (137-145)
== END ==
PROVIDERS: PCP Internal Medicine; Referring Provider Internal Medicine Nephrology; Visit Provider Internal Medicine Nephrology
DX: N18.6 End stage renal disease (principal)
CPT/HCPCS: 36415; 80048

== ENCOUNTER → 2021-11-24 11:05 | Outpatient (CLI) | payer OTHER, SELFPAY ==
[2020-08-08 19:17] VITALS: BMI 23.7
[2021-11-24 11:52] LABS: Add Manual Diff / Slide Review NO; Basophils Absolute Auto 100 /uL (0-100); Basophils Percent Auto 0.7 % (0-2); Eosinophils Absolute Auto 300 /uL (0-450); Eosinophils Percent Auto 3.8 % (2-4); Hematocrit 34.1 % (41-53); Hemoglobin 11.5 g/dL (13.5-17.5); Lymphocytes Absolute Auto 1200 /uL (1100-4500); Lymphocytes Percent Auto 13.8 % (25-40); Mean Corpuscular HGB Conc 33.6 % (30-36); Mean Corpuscular Hemoglobin 32.9 PG (26-34); Mean Corpuscular Volume 97.9 fL (80-100); Monocytes Absolute Auto 600 /uL (0-900); Monocytes Percent Auto 6.7 % (3-14); Neutrophils Absolute Auto 6300 /uL (1500-7000); Platelet Count 119 X10^3/uL (150-400); Red Blood Cell Count 3.49 X10^6/uL (4.5-5.9); Red Cell Distribution Width 14.5 % (11.6-14.8); White Blood Cell Count 8.4 X10^3/uL (4.5-11.0)
[2021-11-24 12:10] LABS: Albumin 4.2 g/dL (3.5-5.0); BUN Creatinine Ratio 22.2 (6-22); Blood Urea Nitrogen 76 mg/dL (9-20); Calcium 9.5 mg/dL (8.4-10.2); Carbon Dioxide 23 mmol/L (22-32); Chloride 110 mmol/L (98-107); Estimated Glomerular Filt Rate 18 mL/min (>60); Glucose 105 mg/dL (80-110); HEMOLYSIS < 15 (0-50); Potassium 5.3 mmol/L (3.4-5.1); Sodium 142 mmol/L (137-145)
== END ==
PROVIDERS: PCP Internal Medicine; Referring Provider Internal Medicine Nephrology; Visit Provider Internal Medicine Nephrology
DX: N18.4 Chronic kidney disease, stage 4 (severe) (principal)
CPT/HCPCS: 36415; 80069; 85025

== ENCOUNTER → 2021-12-10 11:44 | Outpatient (CLI) | payer OTHER, SELFPAY ==
[2020-08-08 19:17] VITALS: BMI 23.7
[2021-12-10 13:50] LABS: BUN Creatinine Ratio 22.6 (6-22); Blood Urea Nitrogen 83 mg/dL (9-20); Calcium 9.4 mg/dL (8.4-10.2); Carbon Dioxide 19 mmol/L (22-32); Chloride 113 mmol/L (98-107); Estimated Glomerular Filt Rate 17 mL/min (>60); Glucose 88 mg/dL (80-110); HEMOLYSIS 18 (0-50); Potassium 3.9 mmol/L (3.4-5.1); Sodium 143 mmol/L (137-145)
== END ==
PROVIDERS: PCP Internal Medicine; Referring Provider Internal Medicine Nephrology; Visit Provider Internal Medicine Nephrology
DX: N18.4 Chronic kidney disease, stage 4 (severe) (principal)
CPT/HCPCS: 36415; 80048

== ENCOUNTER → 2021-12-30 16:12 | Outpatient (CLI) | payer OTHER, SELFPAY ==
[2020-08-08 19:17] VITALS: BMI 23.7
[2021-12-30 17:52] LABS: BUN Creatinine Ratio 22.7 (6-22); Blood Urea Nitrogen 79 mg/dL (9-20); Calcium 9.1 mg/dL (8.4-10.2); Carbon Dioxide 20 mmol/L (22-32); Chloride 108 mmol/L (98-107); Estimated Glomerular Filt Rate 18 mL/min (>60); Glucose 102 mg/dL (80-110); HEMOLYSIS 15 (0-50); Potassium 4.6 mmol/L (3.4-5.1); Sodium 141 mmol/L (137-145)
== END ==
PROVIDERS: PCP Internal Medicine; Referring Provider Internal Medicine Nephrology; Visit Provider Internal Medicine Nephrology
DX: N18.4 Chronic kidney disease, stage 4 (severe) (principal)
CPT/HCPCS: 36415; 80048

== ENCOUNTER → 2022-01-15 13:08 | Outpatient (CLI) | payer OTHER, SELFPAY ==
[2020-08-08 19:17] VITALS: BMI 23.7
[2022-01-15 13:59] LABS: Add Manual Diff / Slide Review NO; Basophils Absolute Auto 0 /uL (0-100); Basophils Percent Auto 0.5 % (0-2); Eosinophils Absolute Auto 400 /uL (0-450); Eosinophils Percent Auto 4.9 % (2-4); Hemoglobin 10.9 g/dL (13.5-17.5); Lymphocytes Absolute Auto 600 /uL (1100-4500); Lymphocytes Percent Auto 7.4 % (25-40); Mean Corpuscular HGB Conc 33.1 % (30-36); Mean Corpuscular Hemoglobin 32.4 PG (26-34); Monocytes Absolute Auto 600 /uL (0-900); Monocytes Percent Auto 7.6 % (3-14); Neutrophils Absolute Auto 6100 /uL (1500-7000); Neutrophils Percent Auto 79.6 % (50-75); Platelet Count 121 X10^3/uL (150-400); Red Blood Cell Count 3.37 X10^6/uL (4.5-5.9); Red Cell Distribution Width 15.1 % (11.6-14.8); White Blood Cell Count 7.6 X10^3/uL (4.5-11.0)
[2022-01-15 14:10] LABS: BUN Creatinine Ratio 21.2 (6-22); Blood Urea Nitrogen 66 mg/dL (9-20); Calcium 8.9 mg/dL (8.4-10.2); Carbon Dioxide 27 mmol/L (22-32); Chloride 102 mmol/L (98-107); Estimated Glomerular Filt Rate 20 mL/min (>60); Glucose 144 mg/dL (80-110); HEMOLYSIS < 15 (0-50); Phosphorous 2.2 mg/dL (2.3-3.7); Potassium 4.3 mmol/L (3.4-5.1); Sodium 140 mmol/L (137-145)
[2022-01-16 07:59] LABS: Parathyroid Hormone Int 63 pg/mL (15-65)
== END ==
PROVIDERS: PCP Internal Medicine; Referring Provider Internal Medicine Nephrology; Visit Provider Internal Medicine Nephrology
DX: N18.4 Chronic kidney disease, stage 4 (severe) (principal)
CPT/HCPCS: 36415; 80069; 83970; 85025

== ENCOUNTER → 2022-02-17 13:57 | Outpatient (CLI) | payer OTHER, SELFPAY ==
[2020-08-08 19:17] VITALS: BMI 23.7
[2022-02-17 14:29] LABS: Add Manual Diff / Slide Review NO; Basophils Absolute Auto 100 /uL (0-100); Basophils Percent Auto 0.9 % (0-2); Eosinophils Absolute Auto 300 /uL (0-450); Eosinophils Percent Auto 4.6 % (2-4); Hematocrit 30.9 % (41-53); Hemoglobin 10.1 g/dL (13.5-17.5); Lymphocytes Absolute Auto 1200 /uL (1100-4500); Lymphocytes Percent Auto 15.4 % (25-40); Mean Corpuscular HGB Conc 32.8 % (30-36); Mean Corpuscular Hemoglobin 32.4 PG (26-34); Mean Corpuscular Volume 98.7 fL (80-100); Monocytes Absolute Auto 900 /uL (0-900); Monocytes Percent Auto 11.2 % (3-14); Neutrophils Absolute Auto 5200 /uL (1500-7000); Neutrophils Percent Auto 67.9 % (50-75); Platelet Count 123 X10^3/uL (150-400); Red Blood Cell Count 3.13 X10^6/uL (4.5-5.9); White Blood Cell Count 7.6 X10^3/uL (4.5-11.0)
[2022-02-17 14:54] LABS: BUN Creatinine Ratio 20.8 (6-22); Blood Urea Nitrogen 70 mg/dL (9-20); Calcium 9.3 mg/dL (8.4-10.2); Carbon Dioxide 28 mmol/L (22-32); Chloride 106 mmol/L (98-107); Estimated Glomerular Filt Rate 18 mL/min (>60); Glucose 95 mg/dL (80-110); HEMOLYSIS < 15 (0-50); Phosphorous 2.8 mg/dL (2.3-3.7); Potassium 4.7 mmol/L (3.4-5.1); Sodium 144 mmol/L (137-145)
[2022-02-18 07:40] LABS: Parathyroid Hormone Int 71 pg/mL (15-65)
== END ==
PROVIDERS: PCP Internal Medicine; Referring Provider Internal Medicine Nephrology; Visit Provider Internal Medicine Nephrology
DX: N18.4 Chronic kidney disease, stage 4 (severe) (principal)
CPT/HCPCS: 36415; 80069; 83970; 85025

== ENCOUNTER → 2022-03-23 10:47 | Outpatient (CLI) | payer OTHER, SELFPAY ==
[2020-08-08 19:17] VITALS: BMI 23.7
[2022-03-23 12:46] LABS: Add Manual Diff / Slide Review NO; Basophils Absolute Auto 100 /uL (0-100); Basophils Percent Auto 0.8 % (0-2); Eosinophils Absolute Auto 400 /uL (0-450); Eosinophils Percent Auto 5.8 % (2-4); Hematocrit 34.3 % (41-53); Hemoglobin 11.3 g/dL (13.5-17.5); Lymphocytes Absolute Auto 1200 /uL (1100-4500); Lymphocytes Percent Auto 16.5 % (25-40); Mean Corpuscular HGB Conc 32.9 % (30-36); Mean Corpuscular Hemoglobin 32.3 PG (26-34); Mean Corpuscular Volume 98.3 fL (80-100); Monocytes Absolute Auto 700 /uL (0-900); Monocytes Percent Auto 9.9 % (3-14); Neutrophils Absolute Auto 4800 /uL (1500-7000); Platelet Count 106 X10^3/uL (150-400); Red Blood Cell Count 3.49 X10^6/uL (4.5-5.9); Red Cell Distribution Width 13.7 % (11.6-14.8); White Blood Cell Count 7.1 X10^3/uL (4.5-11.0)
[2022-03-23 13:05] LABS: Iron 84 ug/dL (49-181)
[2022-03-23 13:07] LABS: Albumin 4.2 g/dL (3.5-5.0); BUN Creatinine Ratio 22.2 (6-22); Blood Urea Nitrogen 72 mg/dL (9-20); Calcium 9.3 mg/dL (8.4-10.2); Carbon Dioxide 25 mmol/L (22-32); Chloride 105 mmol/L (98-107); Estimated Glomerular Filt Rate 19 mL/min (>60); Glucose 89 mg/dL (80-110); HEMOLYSIS < 15 (0-50); Phosphorous 2.6 mg/dL (2.3-3.7); Potassium 4.4 mmol/L (3.4-5.1); Sodium 143 mmol/L (137-145)
[2022-03-23 13:13] LABS: HEMOLYSIS 83 (0-50)
[2022-03-23 13:15] LABS: Percent Iron Saturation 39 % (20-50); Total Iron Binding Capacity 216 ug/dL (261-462); Transferrin 169 mg/dL (206-381)
[2022-03-23 13:38] LABS: Ferritin 668 ng/mL (18-464)
== END ==
PROVIDERS: PCP Internal Medicine; Referring Provider Internal Medicine Nephrology; Visit Provider Internal Medicine Nephrology
DX: N18.4 Chronic kidney disease, stage 4 (severe) (principal); D63.1 Anemia in chronic kidney disease
CPT/HCPCS: 36415; 80069; 82728; 83540; 83550; 85025

== ENCOUNTER → 2022-05-21 13:50 | Outpatient (CLI) | payer OTHER, SELFPAY ==
[2020-08-08 19:17] VITALS: BMI 23.7
[2022-05-21 14:24] LABS: Add Manual Diff / Slide Review NO; Basophils Absolute Auto 100 /uL (0-100); Basophils Percent Auto 1.3 % (0-2); Eosinophils Absolute Auto 300 /uL (0-450); Eosinophils Percent Auto 4.4 % (2-4); Hematocrit 33.5 % (41-53); Hemoglobin 11.2 g/dL (13.5-17.5); Lymphocytes Absolute Auto 1300 /uL (1100-4500); Lymphocytes Percent Auto 18.6 % (25-40); Mean Corpuscular HGB Conc 33.6 % (30-36); Mean Corpuscular Hemoglobin 32.2 PG (26-34); Mean Corpuscular Volume 95.9 fL (80-100); Monocytes Absolute Auto 700 /uL (0-900); Monocytes Percent Auto 10.4 % (3-14); Neutrophils Absolute Auto 4700 /uL (1500-7000); Neutrophils Percent Auto 65.3 % (50-75); Platelet Count 113 X10^3/uL (150-400); Red Blood Cell Count 3.49 X10^6/uL (4.5-5.9); Red Cell Distribution Width 13.8 % (11.6-14.8); White Blood Cell Count 7.2 X10^3/uL (4.5-11.0)
[2022-05-21 14:36] LABS: HEMOLYSIS < 15 (0-50); Iron 58 ug/dL (49-181)
[2022-05-21 14:38] LABS: Albumin 4.3 g/dL (3.5-5.0); BUN Creatinine Ratio 24.7 (6-22); Blood Urea Nitrogen 81 mg/dL (9-20); Calcium 9.2 mg/dL (8.4-10.2); Carbon Dioxide 29 mmol/L (22-32); Chloride 104 mmol/L (98-107); Estimated Glomerular Filt Rate 19 mL/min (>60); Glucose 108 mg/dL (80-110); HEMOLYSIS < 15 (0-50); Phosphorous 3.1 mg/dL (2.3-3.7); Potassium 4.5 mmol/L (3.4-5.1); Sodium 142 mmol/L (137-145)
[2022-05-21 14:48] LABS: Percent Iron Saturation 25 % (20-50); Total Iron Binding Capacity 231 ug/dL (261-462); Transferrin 153 mg/dL (206-381)
[2022-05-21 15:11] LABS: Ferritin 481 ng/mL (18-464)
== END ==
PROVIDERS: PCP Internal Medicine; Referring Provider Internal Medicine Nephrology; Visit Provider Internal Medicine Nephrology
DX: N18.4 Chronic kidney disease, stage 4 (severe) (principal); D63.1 Anemia in chronic kidney disease
CPT/HCPCS: 36415; 80069; 82728; 83540; 83550; 85025

== ENCOUNTER → 2022-07-22 11:30 | Outpatient (CLI) | payer OTHER, SELFPAY ==
[2020-08-08 19:17] VITALS: BMI 23.7
[2022-07-22 12:24] LABS: Basophils Absolute Auto 100 /uL (0-100); Basophils Percent Auto 0.9 % (0-2); Eosinophils Absolute Auto 400 /uL (0-450); Hematocrit 31.8 % (41-53); Hemoglobin 10.7 g/dL (13.5-17.5); Lymphocytes Absolute Auto 1100 /uL (1100-4500); Lymphocytes Percent Auto 16.3 % (25-40); Mean Corpuscular HGB Conc 33.5 % (30-36); Mean Corpuscular Hemoglobin 32.1 PG (26-34); Mean Corpuscular Volume 95.9 fL (80-100); Monocytes Absolute Auto 700 /uL (0-900); Neutrophils Absolute Auto 4400 /uL (1500-7000); Neutrophils Percent Auto 66.8 % (50-75); Platelet Count 84 X10^3/uL (150-400); Red Blood Cell Count 3.32 X10^6/uL (4.5-5.9); Red Cell Distribution Width 14.3 % (11.6-14.8); White Blood Cell Count 6.6 X10^3/uL (4.5-11.0)
[2022-07-22 12:25] LABS: Add Manual Diff / Slide Review SLIDE REVIEW
[2022-07-22 12:50] LABS: Platelet Estimate Decr; RBC Morphology Normal Morphology
[2022-07-22 13:09] LABS: HEMOLYSIS < 15 (0-50); Iron 58 ug/dL (49-181)
[2022-07-22 13:14] LABS: BUN Creatinine Ratio 23.2 (6-22); Blood Urea Nitrogen 76 mg/dL (9-20); Calcium 8.9 mg/dL (8.4-10.2); Carbon Dioxide 27 mmol/L (22-32); Chloride 103 mmol/L (98-107); Estimated Glomerular Filt Rate 19 mL/min (>60); Glucose 87 mg/dL (80-110); HEMOLYSIS < 15 (0-50); Phosphorous 3.3 mg/dL (2.3-3.7); Potassium 4.8 mmol/L (3.4-5.1); Sodium 140 mmol/L (137-145)
[2022-07-22 13:20] LABS: Percent Iron Saturation 25 % (20-50); Total Iron Binding Capacity 231 ug/dL (261-462); Transferrin 174 mg/dL (206-381)
[2022-07-22 13:36] LABS: Ferritin 474 ng/mL (18-464)
== END ==
PROVIDERS: PCP Internal Medicine; Referring Provider Internal Medicine Nephrology; Visit Provider Internal Medicine Nephrology
DX: N18.4 Chronic kidney disease, stage 4 (severe) (principal); D63.1 Anemia in chronic kidney disease
CPT/HCPCS: 36415; 80069; 82728; 83540; 83550; 85025

== ENCOUNTER → 2022-09-14 13:49 | Outpatient (CLI) | payer OTHER, SELFPAY ==
[2020-08-08 19:17] VITALS: BMI 23.7
== END ==
PROVIDERS: PCP Internal Medicine; Referring Provider Internal Medicine; Visit Provider Internal Medicine
DX: Z13.89 Encounter for screening for other disorder (principal)
CPT/HCPCS: 36415

== ENCOUNTER → 2022-09-15 13:49 | Outpatient (CLI) | payer OTHER, SELFPAY ==
[2020-08-08 19:17] VITALS: BMI 23.7
[2022-09-15 15:47] LABS: Prostate Specific Antigen < 0.064 ng/mL (0.10-4.00)
== END ==
PROVIDERS: PCP Internal Medicine; Referring Provider Internal Medicine; Visit Provider Internal Medicine
DX: Z13.89 Encounter for screening for other disorder (principal)
CPT/HCPCS: 36415; 84153

== ENCOUNTER → 2022-10-15 12:41 | Outpatient (CLI) | payer OTHER, SELFPAY ==
[2020-08-08 19:17] VITALS: BMI 23.7
[2022-10-15 13:58] LABS: HEMOLYSIS < 15 (0-50); Iron 46 ug/dL (49-181)
[2022-10-15 14:06] LABS: Add Manual Diff / Slide Review NO; Basophils Absolute Auto 0 /uL (0-100); Basophils Percent Auto 0.4 % (0-2); Eosinophils Absolute Auto 300 /uL (0-450); Eosinophils Percent Auto 4.1 % (2-4); Hematocrit 33.5 % (41-53); Lymphocytes Absolute Auto 1100 /uL (1100-4500); Lymphocytes Percent Auto 15.4 % (25-40); Mean Corpuscular Hemoglobin 31.4 PG (26-34); Mean Corpuscular Volume 95.4 fL (80-100); Monocytes Absolute Auto 900 /uL (0-900); Monocytes Percent Auto 11.8 % (3-14); Neutrophils Absolute Auto 5100 /uL (1500-7000); Neutrophils Percent Auto 68.3 % (50-75); Platelet Count 114 X10^3/uL (150-400); Red Blood Cell Count 3.51 X10^6/uL (4.5-5.9); Red Cell Distribution Width 15.1 % (11.6-14.8); White Blood Cell Count 7.4 X10^3/uL (4.5-11.0)
[2022-10-15 14:09] LABS: Percent Iron Saturation 20 % (20-50); Total Iron Binding Capacity 234 ug/dL (261-462); Transferrin 142 mg/dL (206-381)
[2022-10-15 14:59] LABS: BUN Creatinine Ratio 19.2 (6-22); Blood Urea Nitrogen 62 mg/dL (9-20); Calcium 9.1 mg/dL (8.4-10.2); Carbon Dioxide 23 mmol/L (22-32); Chloride 109 mmol/L (98-107); Estimated Glomerular Filt Rate 19 mL/min (>60); Glucose 105 mg/dL (80-110); HEMOLYSIS < 15 (0-50); Phosphorous 2.6 mg/dL (2.3-3.7); Potassium 4.8 mmol/L (3.4-5.1); Sodium 143 mmol/L (137-145)
[2022-10-15 15:33] LABS: Ferritin 436 ng/mL (18-464)
== END ==
PROVIDERS: PCP Internal Medicine; Referring Provider Internal Medicine Nephrology; Visit Provider Internal Medicine Nephrology
DX: N18.4 Chronic kidney disease, stage 4 (severe) (principal); D63.1 Anemia in chronic kidney disease
CPT/HCPCS: 36415; 80069; 82728; 83540; 83550; 85025

== ENCOUNTER → 2023-01-27 14:04 | Outpatient (CLI) | payer OTHER, SELFPAY ==
[2020-08-08 19:17] VITALS: BMI 23.7
[2023-01-27 14:50] LABS: Hematocrit 36.1 % (41-53); Hemoglobin 11.5 g/dL (13.5-17.5); Mean Corpuscular HGB Conc 31.8 % (30-36); Mean Corpuscular Hemoglobin 30.3 PG (26-34); Mean Corpuscular Volume 95.1 fL (80-100); Platelet Count 86 X10^3/uL (150-400); Red Blood Cell Count 3.79 X10^6/uL (4.5-5.9); Red Cell Distribution Width 14.6 % (11.6-14.8); White Blood Cell Count 7.3 X10^3/uL (4.5-11.0)
[2023-01-27 14:56] LABS: Add Manual Diff / Slide Review YES
[2023-01-27 15:16] LABS: Platelet Estimate Adeq; RBC Morphology Normal Morphology
[2023-01-27 15:19] LABS: HEMOLYSIS 22 (0-50); Iron 34 ug/dL (49-181)
[2023-01-27 15:21] LABS: Albumin 4.1 g/dL (3.5-5.0); BUN Creatinine Ratio 20.6 (6-22); Blood Urea Nitrogen 64 mg/dL (9-20); Calcium 9.6 mg/dL (8.4-10.2); Carbon Dioxide 23 mmol/L (22-32); Chloride 107 mmol/L (98-107); Estimated Glomerular Filt Rate 20 mL/min (>60); Glucose 102 mg/dL (80-110); HEMOLYSIS < 15 (0-50); Magnesium 2.3 mg/dL (1.6-2.3); Phosphorous 3.3 mg/dL (2.3-3.7); Potassium 5.2 mmol/L (3.4-5.1); Sodium 139 mmol/L (137-145)
[2023-01-27 15:32] LABS: Percent Iron Saturation 16 % (20-50); Total Iron Binding Capacity 215 ug/dL (261-462); Transferrin 148 mg/dL (206-381)
[2023-01-27 15:55] LABS: Ferritin 540 ng/mL (18-464)
[2023-01-27 16:14] LABS: Vitamin D 25 Hydroxy (D3) 60.9 ng/mL (30.0-100.0)
[2023-01-27 18:27] LABS: Neutrophils Absolute Manual 5621 /uL (3000-5900); Total Cells Counted 100
[2023-01-30 07:08] LABS: Parathyroid Hormone Int 99 pg/mL (15-65)
== END ==
PROVIDERS: PCP Internal Medicine; Referring Provider Internal Medicine Nephrology; Visit Provider Internal Medicine Nephrology
DX: N18.4 Chronic kidney disease, stage 4 (severe) (principal)
CPT/HCPCS: 36415; 80048; 82040; 82306; 82728; 83540; 83550; 83735; 83970; 84100; 85007; 85025

== ENCOUNTER → 2023-04-29 12:40 | Outpatient (CLI) | payer OTHER, SELFPAY ==
[2020-08-08 19:17] VITALS: BMI 23.7
[2023-04-29 13:45] LABS: Basophils Absolute Auto 100 /uL (0-100); Basophils Percent Auto 0.8 % (0-2); Eosinophils Absolute Auto 300 /uL (0-450); Eosinophils Percent Auto 4.6 % (2-4); Hematocrit 34.9 % (41-53); Hemoglobin 11.4 g/dL (13.5-17.5); Lymphocytes Absolute Auto 900 /uL (1100-4500); Lymphocytes Percent Auto 14.2 % (25-40); Mean Corpuscular HGB Conc 32.6 % (30-36); Mean Corpuscular Hemoglobin 31.2 PG (26-34); Mean Corpuscular Volume 95.6 fL (80-100); Monocytes Absolute Auto 1000 /uL (0-900); Monocytes Percent Auto 14.7 % (3-14); Neutrophils Absolute Auto 4300 /uL (1500-7000); Neutrophils Percent Auto 65.7 % (50-75); Platelet Count 122 X10^3/uL (150-400); Red Blood Cell Count 3.65 X10^6/uL (4.5-5.9); White Blood Cell Count 6.6 X10^3/uL (4.5-11.0)
[2023-04-29 13:49] LABS: Add Manual Diff / Slide Review SLIDE REVIEW
[2023-04-29 14:08] LABS: BUN Creatinine Ratio 19.6 (6-22); Blood Urea Nitrogen 67 mg/dL (9-20); Calcium 9.5 mg/dL (8.4-10.2); Carbon Dioxide 21 mmol/L (22-32); Chloride 108 mmol/L (98-107); Estimated Glomerular Filt Rate 18 mL/min (>60); Glucose 103 mg/dL (80-110); HEMOLYSIS < 15 (0-50); Sodium 139 mmol/L (137-145)
[2023-04-29 14:59] LABS: RBC Morphology Normal Morphology
[2023-04-29 15:12] LABS: Folate 16.3 ng/mL (2.76-20.0); Vitamin B12 837 pg/mL (239-931)
== END ==
PROVIDERS: PCP Internal Medicine; Referring Provider Internal Medicine Nephrology; Visit Provider Internal Medicine Nephrology
DX: D53.8 Other specified nutritional anemias (principal); D69.6 Thrombocytopenia, unspecified
CPT/HCPCS: 36415; 80048; 82607; 82746; 85025

== ENCOUNTER → 2023-07-24 11:06 | Outpatient (CLI) | payer OTHER, SELFPAY ==
[2020-08-08 19:17] VITALS: BMI 23.7
[2023-07-24 11:55] LABS: Add Manual Diff / Slide Review NO; Basophils Absolute Auto 100 /uL (0-100); Eosinophils Absolute Auto 300 /uL (0-450); Eosinophils Percent Auto 5.8 % (2-4); Hematocrit 33.1 % (41-53); Hemoglobin 10.8 g/dL (13.5-17.5); Lymphocytes Absolute Auto 800 /uL (1100-4500); Lymphocytes Percent Auto 15.2 % (25-40); Mean Corpuscular HGB Conc 32.5 % (30-36); Mean Corpuscular Hemoglobin 31.1 PG (26-34); Mean Corpuscular Volume 95.7 fL (80-100); Monocytes Absolute Auto 700 /uL (0-900); Monocytes Percent Auto 12.9 % (3-14); Neutrophils Absolute Auto 3500 /uL (1500-7000); Neutrophils Percent Auto 65.1 % (50-75); Platelet Count 113 X10^3/uL (150-400); Red Blood Cell Count 3.46 X10^6/uL (4.5-5.9); Red Cell Distribution Width 15.3 % (11.6-14.8); White Blood Cell Count 5.3 X10^3/uL (4.5-11.0)
[2023-07-24 12:08] LABS: BUN Creatinine Ratio 16.4 (6-22); Blood Urea Nitrogen 59 mg/dL (9-20); Calcium 9.2 mg/dL (8.4-10.2); Carbon Dioxide 20 mmol/L (22-32); Chloride 114 mmol/L (98-107); Estimated Glomerular Filt Rate 17 mL/min (>60); Glucose 142 mg/dL (80-110); HEMOLYSIS < 15 (0-50); Magnesium 2.2 mg/dL (1.6-2.3); Phosphorous 3.3 mg/dL (2.3-3.7); Potassium 4.6 mmol/L (3.4-5.1); Sodium 142 mmol/L (137-145)
[2023-07-24 12:22] LABS: Vitamin D 25 Hydroxy (D3) 64.1 ng/mL (30.0-100.0)
[2023-07-24 14:50] LABS: Creatinine Urine Random 65.4 mg/dL
[2023-07-24 15:21] LABS: Microalbumi Creatinin Ratio Ur 405.1 ug/mg CR (<30); Microalbumin Urine Random 26.5 mg/dL (0-1.6)
[2023-07-27 10:57] LABS: Parathyroid Hormone Int 77 pg/mL (15-65)
== END ==
LOC: LAB 11:10
PROVIDERS: PCP Internal Medicine; Referring Provider Internal Medicine Nephrology; Visit Provider Internal Medicine Nephrology
DX: N18.4 Chronic kidney disease, stage 4 (severe) (principal)
CPT/HCPCS: 36415; 80048; 82040; 82043; 82306; 82570; 83735; 83970; 84100; 85025

== ENCOUNTER 2023-09-20 15:04 | Emergency (ER) | payer OTHER, SELFPAY ==
[2020-08-08 19:17] VITALS: BMI 23.7
[2023-09-20] VITALS (12 sets, daily range): BP systolic 142–171; BP diastolic 68–89; PULSE 67–89; RESP 11–25; TEMP 36.6–36.8; O2SAT 95–99; BMI 22.4
--- NOTE | 2023-09-20 15:08 | DI.RAD.S_ITS ---
PROCEDURE: XR CHEST 1V INDICATIONS: chest pain TECHNIQUE: One view of the chest was acquired. COMPARISON: [facility], CT, CT CHEST WITHOUT CONTRAST, 03/22/2021, 12:51. [facility], CR, XR CHEST 1 VIEW, 03/21/2021, 10:04. [facility], CR, XR CHEST 1V, 08/08/2020, 14:56. FINDINGS: Surgical changes and devices: None. Lungs and pleura: Chronic interstitial markings are seen in both lungs compatible with patient's history of interstitial lung disease. No definite acute consolidation is seen. There is chronic volume loss in the right lung. Mediastinum: Mediastinal contours appear normal. Heart size is stable. Bones and chest wall: No suspicious bony lesions. Overlying soft tissues appear unremarkable. IMPRESSION: Chronic interstitial lung disease. No definite acute cardiopulmonary process. Approved by: Dat Clark M.D. on 09/20/2023 at 16:53
--- NOTE | 2023-09-20 15:15 | EKG_ITS ---
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
[2023-09-20] MEDS: ASPIRIN 81 MG CHEW TAB 324 MG PO (15:28)
[2023-09-20 16:15] LABS: Add Manual Diff / Slide Review NO; Basophils Absolute Auto 100 /uL (0-100); Basophils Percent Auto 0.7 % (0-2); Eosinophils Absolute Auto 300 /uL (0-450); Eosinophils Percent Auto 3.6 % (2-4); Hematocrit 32.3 % (41-53); Hemoglobin 10.5 g/dL (13.5-17.5); Lymphocytes Absolute Auto 1100 /uL (1100-4500); Mean Corpuscular HGB Conc 32.5 % (30-36); Mean Corpuscular Hemoglobin 30.5 PG (26-34); Mean Corpuscular Volume 93.9 fL (80-100); Monocytes Absolute Auto 1000 /uL (0-900); Neutrophils Absolute Auto 5100 /uL (1500-7000); Neutrophils Percent Auto 67.7 % (50-75); Platelet Count 137 X10^3/uL (150-400); Red Blood Cell Count 3.44 X10^6/uL (4.5-5.9); Red Cell Distribution Width 14.2 % (11.6-14.8); White Blood Cell Count 7.6 X10^3/uL (4.5-11.0)
[2023-09-20 16:22] LABS: Prothrombin Time 11.7 SECONDS (9.4-12.5)
[2023-09-20 16:25] LABS: PTT Partial Thromboplastin Tim 28 SECONDS (25.1-36.5)
[2023-09-20 16:27] LABS: Alanine Aminotransferase 50 IU/L (<50); Albumin 4.2 g/dL (3.5-5.0); Alkaline Phosphatase 114 U/L (38-126); Aspartate Aminotransferase 78 IU/L (17-59); Bilirubin Total 0.5 mg/dL (0.2-1.3); Blood Urea Nitrogen 64 mg/dL (9-20); Calcium 9.2 mg/dL (8.4-10.2); Carbon Dioxide 23 mmol/L (22-32); Chloride 109 mmol/L (98-107); Creatine Kinase 40 U/L (55-170); Estimated Glomerular Filt Rate 16 mL/min (>60); Globulin 4.3 g/dL (1.7-4.1); Glucose 108 mg/dL (80-110); HEMOLYSIS < 15 (0-50); Lipase 105 U/L (23-300); Magnesium 2.2 mg/dL (1.6-2.3); Sodium 139 mmol/L (137-145); Total Protein 8.5 g/dL (6.3-8.2)
[2023-09-20 16:39] LABS: Troponin I < 0.012 ng/mL (0.01-0.034)
--- NOTE | 2023-09-20 17:43 | EKG_ITS ---
[address] [address] Test Date: 2023-09-20 Pat Name: Joshua Dunham Department: [facility] Room: Gender: Male Mesmerist: ENRICO : 1945 Requested By: Order Number: [id number] Reading MD: Jean Lynn Measurements Intervals [place] Rate: 78 P: 9 HI: 232 QRS: -17 QRSD: 74 T: 16 QT: 364 QTc: 414 Interpretive Statements Sinus rhythm with 1st degree AV block Electronically Signed On 09-22-2023 18:36:15 PDT by Jean Lynn
[2023-09-20 18:08] LABS: Troponin I < 0.012 ng/mL (0.01-0.034)
--- NOTE | 2023-09-20 18:09 | ED_ITS ---
HPI - Chest Pain General Chief Complaint: Chest Pain Stated Complaint: chest pressure Time Seen by Provider: 09/20/23 18:08 Source: patient Mode of arrival: Family Vehicle Limitations: no limitations History of Present Illness HPI narrative: 78-year-old gentleman with a history of bladder cancer post resection with ileostomy in place, hyperlipidemia, chronic kidney disease, did spend a year on dialysis currently has a creatinine in the 3 range, make sure in in his no longer on dialysis, chronic interstitial lung disease not requiring oxygen at home. He presents to the emergency department today complaining of chest pain that occurred shortly after sitting down at a restaurant prior to eating anything. He described it as chest pressure that radiated through to his back. Was not associated with dyspnea, diaphoresis. He describes it as more pressure. He states he had a similar event approximately 3 years ago with admission [facility] for chest pain workup that did not reveal obvious coronary disease. He states he had a well visit with his primary care doctor a couple of weeks ago who mentioned ?that his heart problem seemed back to normal?. The chest pressure that he describes lasted approximately 2 hours has since resolved Related Data Home Medications Medication Instructions Recorded Confirmed atorvastatin 20 mg tablet (Lipitor) 20 mg PO BEDTIME 08/08/20 08/08/20 Previous Rx's Medication Instructions Recorded polyethylene glycol 3350 17 17 g PO DAILY to prevent 05/13/20 gram/dose oral powder constipation #238 grams tamsulosin 0.4 mg capsule (Flomax) 0.4 mg PO DAILY #30 caps 07/15/21 Allergies Allergy/AdvReac Type Severity Reaction Status Date / Time No Known Drug Allergies Allergy Verified 08/08/20 14:32 Review of Systems Review of Systems Narrative: Pertinent positive and negative findings as per HPI Patient History Medical History Bladder polyps Hyperlipidemia Impaired glucose tolerance Prostate cancer Surgical History Bladder cancer H/O prostatectomy S/P ureteral stent placement Family History Mother CVA (cerebral vascular accident) Father Lung cancer Tobacco user Sister Alive and well Social History household members: spouse Smoking Status: Former smoker alcohol intake: never Smoking Status: Former smoker alcohol intake frequency: other Substance Use Type: does not use Exam Initial Vital Signs Initial Vital Signs: Vital Signs Temperature 97.8 F 09/20/23 15:17 Pulse Rate 67 09/20/23 15:17 Respiratory Rate 16 09/20/23 15:17 Blood Pressure 157/68 H 09/20/23 15:17 Pulse Oximetry 98 09/20/23 15:17 Oxygen Delivery Method Room Air 09/20/23 15:17 General: Healthy appearing, in no acute distress. Able to give a complete and coherent history. Well-nourished well-developed HEENT: Moist mucous membranes, normal sclera with reactive pupils, Neck: No JVD, supple Respiratory: Lungs with minor bibasilar crackles consistent with his interstitial lung disease. Full and symmetrical air movement Chest: No reproducible chest pain with palpation along sternal borders or ribcage Cardiac: Regular rate and rhythm no murmurs no bruits Abdomen: Soft, nontender, good bowel tones, no flank pain Skin: Warm and dry, no rashes Neurologic: Grossly neurologically intact with no obvious asymmetries or abnormalities Extremities: No trauma, well perfused, no lower extremity edema Psych: Cooperative, appropriate insight and affect Course Orders Ordered: ED Orders 09/20/23 15:08 XR chest 1V Stat EKG-12 Lead Stat 09/20/23 15:37 Complete Blood Count AUTO DIFF Stat Comprehensive Metabolic Panel Stat Lipase Stat Magnesium Stat PTT Partial Thromboplastin Nelson Stat Prothrombin Time INR Stat Troponin & CK Cardiac Panel Stat 09/20/23 17:36 Troponin I Stat 09/20/23 17:37 EKG-12 Lead Stat Discontinued Medications Aspirin (Aspirin 81 Mg Chew Tab) 324 mg PO NOW ONE Stop: 09/20/23 15:09 Last Admin: 09/20/23 15:28 Dose: 324 mg Documented By: Vital Signs Vital signs: Vital Signs - 8 hr 09/20/23 15:17 09/20/23 15:39 09/20/23 15:42 Temperature 97.8 F Pulse Rate 67 68 Respiratory Rate 16 Blood Pressure 157/68 H 160/81 H Pulse Oximetry 98 95 Oxygen Delivery Method Room Air 09/20/23 15:42 09/20/23 16:00 09/20/23 16:00 Temperature Pulse Rate 67 75 Respiratory Rate 22 Blood Pressure 171/77 H Pulse Oximetry 99 97 Oxygen Delivery Method 09/20/23 16:30 09/20/23 16:30 09/20/23 17:00 Temperature Pulse Rate 76 79 Respiratory Rate 22 22 Blood Pressure 155/74 H Pulse Oximetry 98 98 Oxygen Delivery Method 09/20/23 17:03 09/20/23 17:03 09/20/23 17:30 Temperature Pulse Rate 80 Respiratory Rate 20 Blood Pressure 153/75 H 159/77 H Pulse Oximetry 99 Oxygen Delivery Method 09/20/23 17:30 09/20/23 18:00 09/20/23 18:00 Temperature Pulse Rate 79 83 Respiratory Rate 11 L Blood Pressure 161/78 H Pulse Oximetry 98 98 Oxygen Delivery Method MDM - Chest Pain Lab Data 09/20/23 15:37 09/20/23 15:37 Labs: Lab Results 09/20/23 09/20/23 Range/Units 15:37 17:36 WBC 7.6 (4.5-11.0) X10^3/uL RBC 3.44 L (4.5-5.9) X10^6/uL Hgb 10.5 L (13.5-17.5) g/dL Hct 32.3 L (41-53) % MCV 93.9 (80-100) fL MCH 30.5 (26-34) PG MCHC 32.5 (30-36) % RDW 14.2 (11.6-14.8) % Plt Count 137 L (150-400) X10^3/uL Neut % (Auto) 67.7 (50-75) % Lymph % (Auto) 15.0 L (25-40) % [place] % (Auto) 13.0 (3-14) % Eos % (Auto) 3.6 (2-4) % Baso % (Auto) 0.7 (0-2) % Neut # (Auto) 5100 (9124-3895) /uL Lymph # (Auto) 1100 (8927-3228) /uL [place] # (Auto) 1000 H (0-900) /uL Eos # (Auto) 300 (0-450) /uL Baso # (Auto) 100 (0-100) /uL PT 11.7 (9.4-12.5) SECONDS INR 1.0 (0.9-1.3) APTT 28 (25.1-36.5) SECONDS Sodium 139 (137-145) mmol/L Potassium 4.0 (3.4-5.1) mmol/L Chloride 109 H (98-107) mmol/L Carbon Dioxide 23 (22-32) mmol/L BUN 64 H (9-20) mg/dL Creatinine 3.76 H (0.66-1.25) mg/dL Estimated GFR 16 L (>60) mL/min BUN/Creatinine Ratio 17.0 (6-22) Glucose 108 (80-110) mg/dL Calcium 9.2 (8.4-10.2) mg/dL Magnesium 2.2 (1.6-2.3) mg/dL Total Bilirubin 0.5 (0.2-1.3) mg/dL AST 78 H (17-59) IU/L ALT 50 H (<50) IU/L Alkaline Phosphatase 114 (38-126) U/L Total Creatine Kinase 40 L (55-170) U/L Troponin I < 0.012 < 0.012 (0.01-0.034) ng/mL Total Protein 8.5 H (6.3-8.2) g/dL Albumin 4.2 (3.5-5.0) g/dL Globulin 4.3 H (1.7-4.1) g/dL Albumin/Globulin Ratio 1.0 (1.0-2.8) Lipase 105 (23-300) U/L MDM Narrative Medical decision making narrative: CC: Chest pain Complicating co-morbidities: Chronic kidney disease no longer on dialysis, history bladder cancer with an ileostomy, hyperlipidemia, patient states that he is not on blood pressure medications at this time Data collected from: patient Social determinants of health that may influence the patients condition: Medical records reviewed: Hospital discharge from August 09, 2020 with chest pain workup done is reviewed was felt to be atypical chest pain and myocardial perfusion scan showed no evidence of reversible ischemia Nephrology visit from Aug [address] [facility] is reviewed. Apparently they did have a discussion regarding blood pressure at that time patient states that his baseline is typically in the 160/90 range. Nephrology notes indicate that his goal should be 140/90 patient prefers not to be on blood pressure medications. Low-sodium diet has been advised. Discussed importance of increased fluid intake to protect his kidneys with goals of at least 48 oz of fluid daily. Discussion about possibility of needed she returned to dialysis. If that becomes required patient would prefer hospice. Differential considered: Cardiac pain, musculoskeletal pain, reflux, dissection Exam documented above, pertinent findings include: Unremarkable exam, no evidence for congestive heart failure Lab Test results independently reviewed as above. Pertinent findings: CBC shows chronic anemia, at his baseline, no acute infection appreciated Chemistries show creatinine of 3.7 with GFR at 16 which is his baseline. Potassium appropriate at 4. Minimal elevations 2 AST ALT with normal alk-phos and bili Initial and repeat troponin are unremarkable Independently reviewed EKG: Sinus rhythm, no acute ischemic changes. First-degree block. Leftward axis. Imaging studies independently reviewed: Film is slightly rotated. Chronic interstitial lung disease is appreciated with no acute findings Treatments: Chewable aspirin Discussion: At this time patient is chest pain-free. This does not appear to be acute coronary syndrome, given his lowering blood pressure, resolution of symptoms, equal upper extremity pulses I do not think that this is dissection. He has no reproducible musculoskeletal chest pain. Possibility of a GI source for his chest pain remains. At this point labs are reassuring, his heart score remains low with 0.9-1.7% 30 day chance of a major adverse cardiac event. This point I believe he is safe for discharge home. 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 Did recommend he continue keeping track of his blood pressures to review with both of these physicians. Questions are answered and he is safe for discharge home Discharge Plan Departure Patient Disposition: Home Clinical Impression: Atypical chest pain, CKD (chronic kidney disease) stage 4, GFR 15-29 ml/min, Elevated blood pressure reading Instructions: DI for Atypical Chest Pain Activity Restrictions/Additional Instructions: Thank you for coming in today Your workup which includes chemistries checking heart enzymes that are repeated 2 hours after the initial blood test, EKG and chest x-ray are all relatively unremarkable. Your kidney function appears to be at its baseline as does your chronic anemia. Your blood pressure was fairly elevated when you presented to the emergency department. It does look like you recently discuss this with Dr. Ma. Please do continue to keep track of blood pressures and if they are consistently with systolics over 140 I would recommend discussing this further with both of your physicians. At this point I am not seeing any life-threatening abnormalities and I believe discharged home is safe. If you have recurrent symptoms please feel free to return to the ER Prescriptions: No Action atorvastatin [Lipitor] 20 mg Tablet 20 mg PO BEDTIME tamsulosin [Flomax] 0.4 mg capsule 0.4 mg PO DAILY Qty: 30 0RF polyethylene glycol 3350 17 gram/dose powder 17 g PO DAILY Qty: 238 0RF Referrals: Bhargav Garcia MD [Primary Care Provider] - Stand Alone Forms: Patient Portal/API
== END 2023-09-20 19:46 | disposition home or self-care (01) ==
PROVIDERS: Emergency Medicine; Emergency Provider Emergency Medicine; PCP Internal Medicine
DX: R07.89 Other chest pain (principal); N18.4 Chronic kidney disease, stage 4 (severe); R03.0 Elevated blood-pressure reading, without diagnosis of hypertension
CPT/HCPCS: 36415; 71045; 80053; 82550; 83690; 83735; 84484; 85025; 85610; 85730; 93005; 99284

== ENCOUNTER → 2023-10-28 11:22 | Outpatient (CLI) | payer OTHER, SELFPAY ==
[2020-08-08 19:17] VITALS: BMI 23.7
[2023-10-28 12:22] LABS: Add Manual Diff / Slide Review NO; Basophils Absolute Auto 100 /uL (0-100); Basophils Percent Auto 0.9 % (0-2); Eosinophils Absolute Auto 400 /uL (0-450); Eosinophils Percent Auto 6.1 % (2-4); Hematocrit 32.7 % (41-53); Hemoglobin 10.7 g/dL (13.5-17.5); Lymphocytes Absolute Auto 900 /uL (1100-4500); Lymphocytes Percent Auto 15.4 % (25-40); Mean Corpuscular HGB Conc 32.8 % (30-36); Mean Corpuscular Hemoglobin 30.9 PG (26-34); Mean Corpuscular Volume 94.3 fL (80-100); Monocytes Absolute Auto 900 /uL (0-900); Monocytes Percent Auto 14.6 % (3-14); Neutrophils Absolute Auto 3800 /uL (1500-7000); Platelet Count 139 X10^3/uL (150-400); Red Blood Cell Count 3.46 X10^6/uL (4.5-5.9); Red Cell Distribution Width 15.2 % (11.6-14.8); White Blood Cell Count 6.1 X10^3/uL (4.5-11.0)
[2023-10-28 13:02] LABS: Albumin 3.9 g/dL (3.5-5.0); BUN Creatinine Ratio 16.2 (6-22); Blood Urea Nitrogen 62 mg/dL (9-20); Calcium 8.8 mg/dL (8.4-10.2); Carbon Dioxide 20 mmol/L (22-32); Chloride 110 mmol/L (98-107); Estimated Glomerular Filt Rate 16 mL/min (>60); Glucose 129 mg/dL (80-110); HEMOLYSIS < 15 (0-50); Magnesium 2.1 mg/dL (1.6-2.3); Phosphorous 3.2 mg/dL (2.3-3.7); Potassium 4.6 mmol/L (3.4-5.1); Sodium 140 mmol/L (137-145)
[2023-10-28 14:51] LABS: Vitamin D 25 Hydroxy (D3) 59.6 ng/mL (30.0-100.0)
[2023-11-02 07:41] LABS: Parathyroid Hormone Int 94 pg/mL (15-65)
== END ==
PROVIDERS: Physician Assistant; PCP Internal Medicine; Referring Provider Student in an Organized Health Care Education/Training Program; Visit Provider Student in an Organized Health Care Education/Training Program
DX: N18.4 Chronic kidney disease, stage 4 (severe) (principal)
CPT/HCPCS: 36415; 80048; 82040; 82306; 83735; 83970; 84100; 85025

== ENCOUNTER → 2024-01-11 15:38 | Outpatient (CLI) | payer OTHER, SELFPAY ==
[2020-08-08 19:17] VITALS: BMI 23.7
[2024-01-11 17:09] LABS: Add Manual Diff / Slide Review NO; Basophils Absolute Auto 100 /uL (0-100); Basophils Percent Auto 1.4 % (0-2); Eosinophils Absolute Auto 300 /uL (0-450); Eosinophils Percent Auto 4.8 % (2-4); Hematocrit 32.4 % (41-53); Hemoglobin 10.6 g/dL (13.5-17.5); Lymphocytes Absolute Auto 1100 /uL (1100-4500); Lymphocytes Percent Auto 16.6 % (25-40); Mean Corpuscular HGB Conc 32.9 % (30-36); Mean Corpuscular Hemoglobin 30.9 PG (26-34); Mean Corpuscular Volume 94.1 fL (80-100); Monocytes Absolute Auto 900 /uL (0-900); Monocytes Percent Auto 14.9 % (3-14); Neutrophils Absolute Auto 4000 /uL (1500-7000); Neutrophils Percent Auto 62.3 % (50-75); Platelet Count 132 X10^3/uL (150-400); Red Blood Cell Count 3.44 X10^6/uL (4.5-5.9); Red Cell Distribution Width 14.9 % (11.6-14.8); White Blood Cell Count 6.4 X10^3/uL (4.5-11.0)
[2024-01-11 17:40] LABS: Appearance Urine UA CLEAR; Bilirubin Urine UA NEGATIVE (NEGATIVE); Color Urine UA YELLOW; Glucose Urine UA NEGATIVE (Negative); Ketones Urine UA NEGATIVE (NEGATIVE); Nitrite Urine UA NEGATIVE (Negative); Occult Blood Urine UA 2+ (Negative); Protein Urine UA 2+ (Negative); Urobilinogen Urine UA 0.2 E.U./dL (0.2); pH Urine UA 7.5 (4.5-8.0)
[2024-01-11 17:56] LABS: Albumin 4.1 g/dL (3.5-5.0); BUN Creatinine Ratio 16.3 (6-22); Blood Urea Nitrogen 72 mg/dL (9-20); Calcium 8.8 mg/dL (8.4-10.2); Carbon Dioxide 15 mmol/L (22-32); Chloride 112 mmol/L (98-107); Estimated Glomerular Filt Rate 13 mL/min (>60); Glucose 107 mg/dL (80-110); HEMOLYSIS < 15 (0-50); Magnesium 2.3 mg/dL (1.6-2.3); Phosphorous 3.8 mg/dL (2.3-3.7); Potassium 4.9 mmol/L (3.4-5.1); Sodium 139 mmol/L (137-145)
[2024-01-11 17:58] LABS: Vitamin D 25 Hydroxy (D3) 62.6 ng/mL (30.0-100.0)
[2024-01-11 18:37] LABS: Leukocyte Esterase Urine UA 4+ (NEGATIVE)
[2024-01-11 18:38] LABS: Bacteria Urine Moderate (10-30); Culture Indicated Urine Specimen Cultured; RBC Urine 5-10/HPF (0-5/HPF); Squamous Epithelial Cell Urine None Seen (0-5/HPF); Urine Volume 10mL (spun); WBC Urine >100/HPF (0-5/HPF)
== END ==
PROVIDERS: PCP Internal Medicine; Referring Provider Internal Medicine Nephrology; Visit Provider Internal Medicine Nephrology
DX: N18.4 Chronic kidney disease, stage 4 (severe) (principal)
CPT/HCPCS: 36415; 80048; 81001; 82040; 82306; 83735; 83970; 84100; 85025; 87086

== ENCOUNTER → 2024-02-01 14:51 | Outpatient (CLI) | payer OTHER, SELFPAY ==
[2020-08-08 19:17] VITALS: BMI 23.7
[2024-02-01 17:07] LABS: Albumin 3.9 g/dL (3.5-5.0); BUN Creatinine Ratio 17.3 (6-22); Blood Urea Nitrogen 67 mg/dL (9-20); Carbon Dioxide 23 mmol/L (22-32); Chloride 105 mmol/L (98-107); Estimated Glomerular Filt Rate 15 mL/min (>60); Glucose 102 mg/dL (80-110); HEMOLYSIS < 15 (0-50); Sodium 140 mmol/L (137-145)
== END ==
PROVIDERS: PCP Internal Medicine; Referring Provider Internal Medicine Nephrology; Visit Provider Internal Medicine Nephrology
DX: N18.5 Chronic kidney disease, stage 5 (principal)
CPT/HCPCS: 36415; 80048; 82040

== ENCOUNTER → 2024-05-05 15:50 | Outpatient (CLI) | payer OTHER, SELFPAY ==
[2020-08-08 19:17] VITALS: BMI 23.7
[2024-05-05 18:27] LABS: Calcium 9.1 mg/dL (8.4-10.2); Carbon Dioxide 16 mmol/L (22-32); Chloride 107 mmol/L (98-107); Glucose 145 mg/dL (80-110); HEMOLYSIS < 15 (0-50); Potassium 4.9 mmol/L (3.4-5.1); Sodium 137 mmol/L (137-145)
[2024-05-05 18:33] LABS: Estimated Glomerular Filt Rate 9 mL/min (>60)
[2024-05-05 19:05] LABS: BUN Creatinine Ratio 18.3 (6-22)
[2024-05-05 19:33] LABS: Blood Urea Nitrogen 115 mg/dL (9-20)
== END ==
LOC: LAB 15:52
PROVIDERS: PCP Internal Medicine; Referring Provider Internal Medicine Nephrology; Visit Provider Internal Medicine Nephrology
DX: N18.5 Chronic kidney disease, stage 5 (principal)
CPT/HCPCS: 36415; 80048; 82040